=== PATIENT | male | born 1955 | race Two or more races ===

== ENCOUNTER 2020-05-22 07:42 | Outpatient (REF) | payer BC, SELFPAY ==
[2020-05-22 08:57] LABS: MANUAL DIFF FLAG NO
[2020-05-22 09:01] LABS: Basophils Absolute Auto 0.1 X10*3/uL (0.0-0.2); Eosinophils Absolute Auto 0.2 X10*3/uL (0.0-0.4); Eosinophils Percent Auto 2.8 % (0-4); Hematocrit 43.1 % (42-52); Imm Gran Abs Auto 0.02 X10*3/uL (0.00-0.03); Imm Gran Pct Auto 0.3 % (0.0-0.4); Lymphocytes Absolute Auto 2.2 X10*3/uL (1.2-4.9); Lymphocytes Percent Auto 27.3 % (20-40); Mean Corpuscular HGB Conc 32.5 g/dl (31.0-36.0); Mean Corpuscular Hemoglobin 27.7 pg (27.0-33.0); Mean Corpuscular Volume 85.2 fL (80-98); Mean Platelet Volume 11.1 fL (9.4-12.4); Monocytes Absolute Auto 0.8 X10*3/uL (0.1-1.2); Monocytes Percent Auto 9.6 % (2-11); Neutrophils Absolute Auto 4.7 X10*3/uL (2.0-8.3); Platelet Count 219 X10*3/uL (160-400); Red Blood Count 5.06 X10*6/uL (4.60-5.80); Red Cell Distribution Width 13.2 % (11.0-16.0)
[2020-05-22 09:20] LABS: Estimated Average Glucose 140 mg/dL; Hemoglobin A1c % 6.5 %
[2020-05-22 09:24] LABS: Alanine Aminotransferase 24 U/L (0-40); Albumin Level 4.5 g/dL (3.5-5.0); Alkaline Phosphatase 48 U/L (39-117); Anion Gap 12 (12-20); Aspartate Amino Transferase 20 U/L (5-37); Bilirubin Total 0.7 mg/dL (0.0-1.0); Blood Urea Nitrogen 15 mg/dL (9-16); Carbon Dioxide 28 mmol/L (22-29); Chloride 102 mmol/L (96-108); Cholesterol 142 mg/dL; Estimated Glomerular Filt Rate > 60; Glucose Random 89 mg/dL (60-115); HDL Cholesterol 49 mg/dL; LDL Cholesterol Calculated 82 mg/dl; Potassium 4.2 mmol/l (3.3-5.1); Sodium 138 mmol/L (135-145); Total Protein 7.1 g/dL (6.5-8.0); Triglycerides 56 mg/dL
[2020-05-22 09:45] LABS: Creatinine Urine 166.84 mg/dL; Microalbum/Creatinine Ratio Ur 11.3 ug/mg cr
[2020-05-22 09:46] LABS: Free T4 (Free Thyroxine) 0.82 ng/dL (0.71-1.85); Thyroid Stimulating Hormone 0.96 uIU/mL (0.32-4.0)
[2020-05-22 09:51] LABS: Prostate Specific Antigen Scr 0.34 ng/mL (<0.05-4.0)
[2020-05-22 10:10] LABS: Folate > 20.0 ng/mL (> or = 4.0); Vitamin B12 701 pg/mL (200-900)
== END 2020-05-22 07:43 | disposition home or self-care (01) ==
LOC: HO.LAB 07:42
PROVIDERS: Visit Provider Internal Medicine
DX: E78.00 Pure hypercholesterolemia, unspecified (principal); E11.65 Type 2 diabetes mellitus with hyperglycemia; N40.0 Benign prostatic hyperplasia without lower urinary tract symptoms; Z12.5 Encounter for screening for malignant neoplasm of prostate
CPT/HCPCS: 36415; 80053; 80061; 82043; 82607; 82746; 83036; 84153; 84439; 84443; 85025

== ENCOUNTER → 2020-10-16 14:27 | Outpatient (REF) | payer BC, SELFPAY ==
--- NOTE | 2020-10-16 15:00 | CA_ITS ---
Transthoracic Echocardiogram Patient (Last, First, Middle): Ti Wagner, Gender: Male Date of : 1955 Age: 64 Procedure Date: 10/16/2020 Procedure Type: Transthoracic Echocardiogram Location: OP Height: 172.72 cm Weight: 99.34 kg BSA: 2.12 m2 Heart Rate: bpm BP: 122 / 74 mmHg Shaft Headman: ANTHONY Referring MD: Jose Juan Perales MD Symptoms: I11.9 HYPERTENSIVE HEART DIS W/O HF, I43 CMP I51.7 LVH Study Quality: Fair ECG Rhythm: Bradycardia Conclusions: - The left ventricular systolic function is normal. The visually estimated ejection fraction is between 60-65%. - No obvious valvular pathology seen on this study. Findings Left Ventricle Normal left ventricular cavity size. There is mildly increased left ventricular wall thickness. The left ventricular systolic function is normal. The visually estimated ejection fraction is between 60-65%. There is no evidence of regional wall motion abnormalities. Diastolic function is normal for age. LV GLS -18.6%. Right Ventricle Normal right ventricular cavity size and systolic function. Atria Both atria are normal in size. Aortic Valve There is a normal trileaflet aortic valve. There is no aortic valve stenosis. There is no aortic valve regurgitation. Mitral Valve There is mild anterior mitral leaflet thickening. There is trace mitral valve regurgitation. There is no mitral valve stenosis. Pulmonic Valve The pulmonic valve was not well visualized. Tricuspid Valve Normal tricuspid valve structure. There is mild tricuspid valve regurgitation. The pulmonary artery systolic pressure is normal. Great Vessels The aortic annulus, sinuses of valsalva, and asc aorta are normal in size. Venous The inferior vena cava is normal in size and collapses less than 50% with inspiration. Pericardium/Pleural There is a trivial pericardial effusion. Prior Study Comparison Changes noted compared to prior study dated: 07/17/2017. Improved diastolic function. LVH seems less prominent. Recommendations, Care & Conclusions No obvious valvular pathology seen on this study. Measurements M-Mode Liner Measurements Normals - Women/Men AOV Cusps: 2.30 1.5-2.6 cm/m2 2D Linear Measurements IVSd: 1.28 0.6-0.9/0.6-1.0 cm LVIDd: 4.94 3.9-5.3/4.2-5.9 cm LVIDd Index: 2.33 2.4-3.2/2.2-3.1 cm/m2 LVIDs: 3.26 2.0-3.6 cm LVPWd: 1.05 0.7-1.1 cm Ao Root: 2.80 2.1-3.5 cm LA Diam: 3.10 2.7-3.8/3.0-4.0 cm LAIDs Index: 1.46 1.5-2.3 cm/m2 LV Mass: 274.23 67-162/88-224 g LV Mass Index: 129.36 43-95/49-115 g/m2 LVOT Diam: 2.20 3.0+(-)1.3 cm 2D Systolic Function EF 4C: 63.00 >55% EF 2C: 60.30 >55% EF BiP: 60.30 >55% Mitral Valve MV Pk E: 0.97 MV PK A: 0.75 MV Decel Time: 278.00 E/A: 1.30 E'Lateral: 12.10 E'Medial: 7.62 E/E' Med: 12.70 E/E' Lat: 8.00 PHT: 81.00 MVA PHT: 2.72 Decel Magoffin: 3.48 Aortic Valve AoV Pk Surinder: 1.56 AoV Mn Surinder: 1.13 AoV VTI: 0.36 AoV Pk Grad: 10.00 Aov Mn Grad: 6.00 GUSTABO Cont.VTI: 2.41 LVOT LVOT Pk Surinder: 1.04 LVOT Mn Surinder: 0.72 LVOT VTI: 0.23 LVOT Pk Grad: 4.00 LVOT Mn Grad: 2.00 LVOT Diam: 2.20 LVOT Area: 3.80 Diastolic Function MV Pk E: 0.97 MV Pk A: 0.75 E/A: 1.30 E'Medial: 7.62 E/E' Med: 12.70 E' Laterial: 12.10 E/E' Lat: 8.00 Tricuspid Valve TR Pk Surinder: 2.22 TR Pk Grad: 20.00 RA Press: 3.00 RVSP: 23.00 Great Vessels Aorta Ao Root-2D: 2.80 2.0-3.7 cm Ao Asc: 2.90 2.1-3.4 cm Ao Arch: 2.80 Pulmonary Valve PV Pk Surinder: 0.99 Peak PV Grad: 4.00 Updated in Other Vendor System with Status of Final Jose Juan Perales MD electronically signed on 10/18/2020 12:37:55 PM with status of Final
== END ==
LOC: HO.CARD 14:27
PROVIDERS: PCP Internal Medicine; Visit Provider Internal Medicine
DX: I11.9 Hypertensive heart disease without heart failure (principal); I43 Cardiomyopathy in diseases classified elsewhere
CPT/HCPCS: 93306

== ENCOUNTER → 2020-10-29 08:03 | Outpatient (BNVA) | payer BC, SELFPAY | PROVIDERS: PCP Internal Medicine; Referring Provider Internal Medicine; Visit Provider Internal Medicine | DX: I51.7 Cardiomegaly (principal); I10 Essential (primary) hypertension; I44.0 Atrioventricular block, first degree | CPT/HCPCS: 93005 ==

== ENCOUNTER 2021-04-26 17:55 | Emergency (ER) | payer BC, SELFPAY ==
--- NOTE | ~2021-04-26 | XR_ITS ---
EXAMINATION: XR CHEST CLINICAL INFORMATION: Chest pain COMPARISON: None TECHNIQUE: Frontal view of the chest was obtained. 6:47 PM FINDINGS: No significant abnormality is noted involving the heart, lungs, mediastinum, bony thorax or soft tissues. XR/XR chest 1V IMPRESSION: Unremarkable examination.
[2021-04-26 18:28] VITALS: BP 120/68; PULSE 80; RESP 18; TEMP 37; O2SAT 99; BMI 33.4
--- NOTE | 2021-04-26 18:32 | ECG_ITS ---
Test Reason : chest pain Blood Pressure : / mmHG Vent. Rate : 064 BPM Atrial Rate : 064 BPM P-R Int : 212 ms QRS Dur : 084 ms QT Int : 392 ms P-R-T Axes : 065 052 056 degrees QTc Int : 404 ms Sinus rhythm with 1st degree A-V block Possible Left atrial enlargement Borderline ECG When compared with ECG of 29-MAY-2003 22:44, No significant change was found Referred By: Generic ED Physician Electronically Signed By:Sarmad Currie
[2021-04-26 19:18] LABS: MANUAL DIFF FLAG NO
[2021-04-26 19:20] LABS: Basophils Absolute Auto 0.1 X10*3/uL (0.0-0.2); Basophils Percent Auto 0.6 % (0-2); Eosinophils Absolute Auto 0.2 X10*3/uL (0.0-0.4); Eosinophils Percent Auto 1.8 % (0-4); Hematocrit 44.1 % (42.0-52.0); Hemoglobin 14.4 g/dl (14.0-18.0); Imm Gran Abs Auto 0.01 X10*3/uL (0.00-0.03); Imm Gran Pct Auto 0.1 % (0.0-0.4); Lymphocytes Absolute Auto 1.7 X10*3/uL (1.2-4.9); Lymphocytes Percent Auto 19.1 % (20-40); Mean Corpuscular HGB Conc 32.7 g/dl (31.0-36.0); Mean Corpuscular Hemoglobin 27.4 pg (27.0-33.0); Mean Platelet Volume 10.3 fL (9.4-12.4); Monocytes Absolute Auto 0.9 X10*3/uL (0.1-1.2); Monocytes Percent Auto 9.6 % (2-11); Neutrophils Absolute Auto 6.1 x10*3/uL (2.0-8.3); Neutrophils Percent Auto 68.8 % (45-73); Platelet Count 221 X10*3/uL (160-400); Red Blood Count 5.25 X10*6/uL (4.60-5.80); Red Cell Distribution Width 13.5 % (11.0-16.0); White Blood Count 8.8 X10*3/uL (4.8-10.8)
[2021-04-26 19:36] LABS: COVID-19 Test Negative (Negative)
[2021-04-26 19:36] LABS: Anion Gap 10 (12-20); Blood Urea Nitrogen 15 mg/dL (9-16); Calcium 9.8 mg/dL (8.4-10.2); Carbon Dioxide 32 mmol/L (22-29); Chloride 102 mmol/L (96-108); Creatinine Clr Calc Pharmacy 80.1; Estimated Glomerular Filt Rate > 60; Glucose Random 187 mg/dL (60-115); Sodium 140 mmol/L (135-145)
[2021-04-26 19:42] LABS: Troponin-I High Sensitivity < 3.5 ng/L (<3.5-35.0)
--- NOTE | 2021-04-27 01:06 | ED_ITS ---
HPI - Chest Pain General Chief Complaint: Chest Pain Stated Complaint: chest pain into shoulders Time Seen by Provider: 04/26/21 23:21 Source: patient Mode of arrival: ambulatory History of Present Illness HPI narrative: 65-year-old male with history of diabetes, hypertension states that when he got up after sleeping this afternoon he began experiencing pain across the trapezius area of his back at the base the neck with radiation into h is neck and wrapping around into the anterior chest wall that he describes as sharp in nature and had been associated with nausea, diaphoresis as well as headache. Patient became very scared but denies any visual or auditory changes. Patient states that the pain has improved during his wait in the waiting area although there is some residual pain along the borders of his sternum. Related Data Home Medications Medication Instructions Recorded Confirmed ascorbate calcium (vitamin C) 500 500 mg PO DAILY 05/28/20 10/29/20 mg tablet aspirin 81 mg tablet,delayed 81 mg PO DAILY 05/28/20 10/29/20 release (Adult Aspirin Regimen) ferrous sulfate 325 mg (65 mg 325 mg PO DAILY 05/28/20 10/29/20 iron) tablet (Feosol) multivitamin 1 tab PO DAILY 05/28/20 10/29/20 nabumetone 750 mg tablet 750 mg PO BID 05/28/20 10/29/20 Previous Rx's Medication Instructions Recorded dicyclomine 10 mg capsule 10 mg PO BID #180 cap 04/17/20 tamsulosin 0.4 mg capsule 0.4 mg PO DAILY #90 cap 05/25/20 blood sugar diagnostic (FreeStyle #100 ea 05/28/20 Test) lancets 28 gauge (FreeStyle #100 ea 05/28/20 Lancets) clotrimazole 1 % topical cream 1 appl TOPICAL BID 28 Days #45 g 08/31/20 zolpidem 10 mg tablet (Ambien) 10 mg PO BEDTIME PRN #30 tab 08/31/20 lisinopril 5 mg tablet 5 mg PO DAILY #90 tab 02/03/21 atorvastatin 40 mg tablet 40 mg PO DAILY 90 Days #90 tab 03/19/21 Allergies Allergy/AdvReac Type Severity Reaction Status Date / Time No Known Allergies Allergy Verified 04/26/21 18:28 Review of Systems Review of Systems: Pertinent positives and negatives as stated in HPI 10 point review of systems is otherwise negative. PMFSH Past Medical History Source: nursing notes reviewed Medical History BPH (benign prostatic hyperplasia) COVID-19 virus infection Degenerative disc disease, lumbar Genital herpes Hypercholesterolemia Hypertension Hypertrophic cardiomyopathy Insomnia Mitral regurgitation Obesity (BMI 30-39.9) Type 2 diabetes mellitus with hyperglycemia Vitamin D deficiency Surgical History History of testicular surgery Family History Family History Father Acute CVA (cerebrovascular accident) Stroke Mother Hypertension Alzheimers disease Sister Stomach cancer Family/Other Prostate cancer Leukemia Social History Social History Housing: House Alcohol intake: never Patient Tobacco Use Status: Former Tobacco user Tobacco use type: Cigarette e-Cigarette/Vaping Use: Never Used Second Hand Smoke Exposure: No Advance Directives: No Advance Directives Information Provided: Yes service: No Current occupational status: employed Physical Exam Vital Signs: Vital Signs: Last Vital Signs Temp 98.6 F 04/26/21 18:28 Pulse 70 04/27/21 01:08 Resp 18 04/27/21 01:08 BP 123/61 04/27/21 01:08 Pulse Ox 97 04/27/21 01:08 BMI result Body Mass Index 33.4 VITAL SIGNS: Reviewed. GENERAL: Well developed, well nourished, in no acute distress. HEAD: Normocephalic/atraumatic EYES: PERRLA, EOMI intact without pain, no nystagmus OROPHARYNX: no oral lesions noted, posterior pharynx clear NECK: Supple, no adenopathy, no midline cervical spine tenderness LUNGS: Normal breath sounds. SpO2<99> CARDIOVASCULAR: Regular rate and rhythm without noted murmurs, no JVD or lower extremity edema. ABDOMEN: Soft, non-tender, non-distended with bowel sounds. No rigidity. No guarding. No palpable masses or hernias noted SKIN: Inspection of the skin reveals no rashes NEUROLOGIC: Alert and oriented x 4. Strength and sensation to light touch were grossly intact x 4. Course Course Course Narrative: 65-year-old male with history and clinical presentation suggestive of musculoskeletal with spasm and radiation of pain into anterior chest. Low clinical suspicion for vertebral/carotid dissections and history not consistent for VTE or cardiac ischemia. On review of all investigations there are no acute findings to better explain patient's presentation and this was discussed with him at bedside. As patient is diabetic will pursue serial troponins although there are no acute EKG changes. HEART Score: 3, low risk Review of serial troponins in conjunction with EKG negative for evidence to suggest ischemic changes and history is not consistent with angina symptoms. All results discussed with the patient at bedside and he was encouraged to follow-up with his primary care provider as well as ambulance attendant within the next 1-2 days. MDM - Chest Pain Lab Data Result diagrams: 04/26/21 19:13 04/26/21 19:13 Labs: Lab Results 04/26/21 04/26/21 04/26/21 Range/Units 19:08 19:13 19:13 WBC 8.8 (4.8-10.8) X10*3/uL RBC 5.25 (4.60-5.80) X10*6/uL Hgb 14.4 (14.0-18.0) g/dl Hct 44.1 (42.0-52.0) % MCV 84.0 (80.0-98.0) fL MCH 27.4 (27.0-33.0) pg MCHC 32.7 (31.0-36.0) g/dl RDW 13.5 (11.0-16.0) % Plt Count 221 (160-400) X10*3/uL MPV 10.3 (9.4-12.4) fL Immature Gran % (Auto) 0.1 (0.0-0.4) % Neut % (Auto) 68.8 (45-73) % Lymph % (Auto) 19.1 L (20-40) % Kleberg % (Auto) 9.6 (2-11) % Eos % (Auto) 1.8 (0-4) % Baso % (Auto) 0.6 (0-2) % Lymph # (Auto) 1.7 (1.2-4.9) X10*3/uL Kleberg # (Auto) 0.9 (0.1-1.2) X10*3/uL Eos # (Auto) 0.2 (0.0-0.4) X10*3/uL Baso # (Auto) 0.1 (0.0-0.2) X10*3/uL Abs Immat Gran (auto) 0.01 (0.00-0.03) X10*3/uL Absolute Neuts (auto) 6.1 (2.0-8.3) x10*3/uL Absolute Nucleated RBC 0.000 (0.0-0.012) X10*3/uL Nucleated RBC % (auto) 0.0 (0.0-0.2) /100WBC Sodium 140 (135-145) mmol/L Potassium 4.0 (3.3-5.1) mmol/L Chloride 102 (96-108) mmol/L Carbon Dioxide 32 H (22-29) mmol/L Anion Gap 10 L (12-20) BUN 15 (9-16) mg/dL Creatinine 1.08 (0.5-1.4) mg/dL Estim Creat Clear Calc 80.1 Estimated GFR > 60 Random Glucose 187 H D (60-115) mg/dL Calcium 9.8 D (8.4-10.2) mg/dL Troponin I High Sens (<3.5-35.0) ng/L COVID-19 (STEPHANIE) Negative (Negative) COVID-19 Clin Com See Note 04/26/21 04/27/21 Range/Units 19:13 01:06 WBC (4.8-10.8) X10*3/uL RBC (4.60-5.80) X10*6/uL Hgb (14.0-18.0) g/dl Hct (42.0-52.0) % MCV (80.0-98.0) fL MCH (27.0-33.0) pg MCHC (31.0-36.0) g/dl RDW (11.0-16.0) % Plt Count (160-400) X10*3/uL MPV (9.4-12.4) fL Immature Gran % (Auto) (0.0-0.4) % Neut % (Auto) (45-73) % Lymph % (Auto) (20-40) % Kleberg % (Auto) (2-11) % Eos % (Auto) (0-4) % Baso % (Auto) (0-2) % Lymph # (Auto) (1.2-4.9) X10*3/uL Kleberg # (Auto) (0.1-1.2) X10*3/uL Eos # (Auto) (0.0-0.4) X10*3/uL Baso # (Auto) (0.0-0.2) X10*3/uL Abs Immat Gran (auto) (0.00-0.03) X10*3/uL Absolute Neuts (auto) (2.0-8.3) x10*3/uL Absolute Nucleated RBC (0.0-0.012) X10*3/uL Nucleated RBC % (auto) (0.0-0.2) /100WBC Sodium (135-145) mmol/L Potassium (3.3-5.1) mmol/L Chloride (96-108) mmol/L Carbon Dioxide (22-29) mmol/L Anion Gap (12-20) BUN (9-16) mg/dL Creatinine (0.5-1.4) mg/dL Estim Creat Clear Calc Estimated GFR Random Glucose (60-115) mg/dL Calcium (8.4-10.2) mg/dL Troponin I High Sens < 3.5 < 3.5 (<3.5-35.0) ng/L COVID-19 (STEPHANIE) (Negative) COVID-19 Clin Com ECG Data ECG #1: Attestation: I personally reviewed and interpreted this ECG as follows: Interpretation: Sinus rhythm with first-degree AV block, HR-64, no STEMI, WA at baseline, QRS/QTC are within normal limits. Discharge Plan Discharge Clinical Impression: Musculoskeletal pain, Muscle spasm Patient Disposition: Home, Self-Care Instructions: Musculoskeletal Pain (ED), Muscle Spasm (ED) Additional Instructions: 1. Resume all home medications as prescribed. 2. Tylenol 1000 mg, orally, every 6 hours as needed for pain control. Do not exceed 4000 mg within 24 hours. 3. Recommend trda-eis-snuozec lidocaine patch, apply this to area of maximal tenderness as directed on the outside packaging. 4. Follow-up with your primary care provider in the next 1-2 days for further discussion regarding this pain and further outpatient management. Return to the ER for worsening symptoms. Prescriptions: No Action dicyclomine 10 mg capsule 10 mg PO BID Qty: 180 RF: 1 tamsulosin 0.4 mg capsule 0.4 mg PO DAILY Qty: 90 RF: 2 lisinopril 5 mg tablet 5 mg PO DAILY Qty: 90 RF: 2 atorvastatin 40 mg tablet 40 mg PO DAILY 90 Days Qty: 90 RF: 3 zolpidem [Ambien] 10 mg tablet 10 mg PO BEDTIME PRN (Reason: sleep) Qty: 30 RF: 0 clotrimazole 1 % cream 1 appl topical BID 28 Days Qty: 45 RF: 0 nabumetone 750 mg tablet 750 mg PO BID RF: 0 multivitamin Tablet 1 tab PO DAILY RF: 0 ascorbate calcium (vitamin C) 500 mg tablet 500 mg PO DAILY RF: 0 ferrous sulfate [Feosol] 325 mg (65 mg iron) tablet 325 mg PO DAILY RF: 0 aspirin [Adult Aspirin Regimen] 81 mg tablet,delayed release (DR/EC) 81 mg PO DAILY RF: 0 (DME) lancets [FreeStyle Lancets] 28 gauge misc See Rx Instructions .ROUTE .MEDSUPPLY Qty: 100 RF: 3 (DME) FreeStyle Test Strip See Rx Instructions .ROUTE .MEDSUPPLY Qty: 100 RF: 3 Referrals: Po,Chari Mcbride MD [Primary Care Provider] - 2 days
[2021-04-27 01:08] VITALS: BP 123/61; PULSE 70; RESP 18; O2SAT 97
[2021-04-27 01:34] LABS: Troponin-I High Sensitivity < 3.5 ng/L (<3.5-35.0)
[2021-04-27] MEDS: Ketorolac Tromethamine 30 MG/ML VIAL 15 MG IM (01:49)
[2021-04-27] MEDS: Lidocaine 4 % Patch ADH..PATCH 1 PATCH TRANSDERMA (01:49)
[2021-04-27] MEDS: Acetaminophen 325 MG TABLET 975 MG PO (01:50)
== END 2021-04-27 02:01 | disposition home or self-care (01) ==
PROVIDERS: Emergency Provider Student in an Organized Health Care Education/Training Program; PCP Internal Medicine
DX: R07.89 Other chest pain (principal); M62.838 Other muscle spasm; E11.9 Type 2 diabetes mellitus without complications; I10 Essential (primary) hypertension; Z20.822 Contact with and (suspected) exposure to COVID-19
CPT/HCPCS: 36415; 71045; 80048; 84484; 85025; 87635; 93005; 96372; 99284; J1885

== ENCOUNTER 2021-06-04 14:27 | Outpatient (REF) | payer BC, SELFPAY ==
[2021-06-04 14:51] LABS: MANUAL DIFF FLAG NO
[2021-06-04 15:14] LABS: Basophils Absolute Auto 0.1 X10*3/uL (0.0-0.2); Basophils Percent Auto 0.6 % (0-2); Eosinophils Absolute Auto 0.3 X10*3/uL (0.0-0.4); Eosinophils Percent Auto 3.2 % (0-4); Hematocrit 44.3 % (42.0-52.0); Hemoglobin 14.1 g/dl (14.0-18.0); Imm Gran Abs Auto 0.02 X10*3/uL (0.00-0.03); Imm Gran Pct Auto 0.3 % (0.0-0.4); Lymphocytes Percent Auto 25.3 % (20-40); Mean Corpuscular HGB Conc 31.8 g/dl (31.0-36.0); Mean Corpuscular Hemoglobin 26.9 pg (27.0-33.0); Mean Corpuscular Volume 84.4 fL (80.0-98.0); Mean Platelet Volume 10.1 fL (9.4-12.4); Monocytes Absolute Auto 0.8 X10*3/uL (0.1-1.2); Monocytes Percent Auto 10.5 % (2-11); Neutrophils Absolute Auto 4.7 x10*3/uL (2.0-8.3); Neutrophils Percent Auto 60.1 % (45-73); Platelet Count 225 X10*3/uL (160-400); Red Blood Count 5.25 X10*6/uL (4.60-5.80); Red Cell Distribution Width 13.6 % (11.0-16.0); White Blood Count 7.9 X10*3/uL (4.8-10.8)
[2021-06-04 15:20] LABS: Estimated Average Glucose 148 mg/dL; Hemoglobin A1c % 6.8 %
[2021-06-04 15:34] LABS: Creatinine Urine 164.46 mg/dL; Microalbum/Creatinine Ratio Ur 7.2 ug/mg cr
[2021-06-04 15:35] LABS: Alanine Aminotransferase 18 U/L (0-40); Albumin Level 4.2 g/dL (3.5-5.0); Alkaline Phosphatase 51 U/L (39-117); Anion Gap 8 (12-20); Aspartate Amino Transferase 16 U/L (5-37); Bilirubin Total 0.9 mg/dL (0.0-1.0); Blood Urea Nitrogen 14 mg/dL (9-16); Calcium 9.5 mg/dL (8.4-10.2); Carbon Dioxide 31 mmol/L (22-29); Chloride 103 mmol/L (96-108); Cholesterol 139 mg/dL; Estimated Glomerular Filt Rate > 60; Glucose Random 109 mg/dL (60-115); HDL Cholesterol 39 mg/dL; LDL Cholesterol Calculated 88 mg/dl; Potassium 4.4 mmol/L (3.3-5.1); Sodium 138 mmol/L (135-145); Total Protein 6.8 g/dL (6.5-8.0); Triglycerides 60 mg/dL
[2021-06-04 15:54] LABS: Free T4 (Free Thyroxine) 0.74 ng/dL (0.71-1.85); Prostate Specific Antigen Scr 0.28 ng/mL (<0.05-4.0); Thyroid Stimulating Hormone 1.54 uIU/mL (0.32-4.0)
[2021-06-04 16:09] LABS: Folate > 20.0 ng/mL (> or = 4.0); Vitamin B12 720 pg/mL (200-900)
== END 2021-06-04 14:28 | disposition home or self-care (01) ==
LOC: HO.LAB 14:27
PROVIDERS: PCP Internal Medicine; Visit Provider Internal Medicine
DX: E11.65 Type 2 diabetes mellitus with hyperglycemia (principal); E78.00 Pure hypercholesterolemia, unspecified
CPT/HCPCS: 36415; 80053; 80061; 82043; 82607; 82746; 83036; 84153; 84439; 84443; 85025

== ENCOUNTER 2021-06-10 12:27 | Outpatient (REF) | payer BC, SELFPAY ==
--- NOTE | ~2021-06-10 | XR_ITS ---
EXAMINATION: XR FOOT, LEFT CLINICAL INFORMATION: Foot ganglion COMPARISON: None TECHNIQUE: AP, lateral, and oblique views of the left foot. FINDINGS: Bones have normal alignment throughout the foot. Small linear ossification at the lateral base of the fifth metatarsal likely represents old avulsion fracture. No acute osseous injury. No erosions or periostitis. Mild articular cartilage space narrowing and small osteophytes of the great toe MTP joint. Otherwise, MTP joints are unremarkable. Mild osteoarthritis of multiple interphalangeal joints. No soft tissue mass or radiopaque foreign body. XR/XR foot LT 2V IMPRESSION: * No radiographic evidence of soft tissue mass in the left foot. * Mild osteoarthritis of the first metatarsophalangeal joint and of multiple interphalangeal joints.
== END 2021-06-10 12:28 | disposition home or self-care (01) ==
LOC: HO.XRAY 12:27
PROVIDERS: PCP Internal Medicine; Visit Provider Internal Medicine
DX: M67.479 Ganglion, unspecified ankle and foot (principal)
CPT/HCPCS: 73620

== ENCOUNTER 2021-07-29 09:27 | Outpatient (REF) | payer BC, SELFPAY ==
--- NOTE | ~2021-07-29 | US_ITS ---
EXAMINATION: US EXTRACRANIAL CAROTID DUPLEX, BILATERAL CLINICAL INFORMATION: Carotid bruit. COMPARISON: None TECHNIQUE: Real-time ultrasound and Doppler techniques (integrating B-mode 2-D vascular images, Doppler spectral analysis and color-flow Doppler imaging) were utilized to interrogate the extracranial carotid arteries, the vertebral arteries and proximal subclavian arteries bilaterally. The degree of stenosis is determined by criteria similar to NASCET. FINDINGS: Right Side: 1. There is mild atherosclerotic plaque seen in the bifurcation/proximal ICA region. 2. The common carotid artery PSV proximally is 134 cm/s and distally 123 cm/s. 3. The proximal internal carotid artery velocities are 89.7 cm/s systolic and 32.8 cm/s diastolic. 4. The proximal external carotid artery PSV is 164 cm/s. 5. The vertebral artery shows antegrade flow. 6. The subclavian artery waveforms are normal. Left Side: 1. There is mild atherosclerotic plaque seen in the bifurcation/proximal ICA region. 2. The common carotid artery PSV proximally is 128 cm/s and distally 125 cm/s. 3. The proximal internal carotid artery velocities are 62.1 cm/s systolic and 24 cm/s diastolic. 4. The proximal external carotid artery PSV is 190 cm/s. 5. The vertebral artery shows antegrade flow. 6. The subclavian artery waveforms are normal. US/US carotid duplex BI IMPRESSION: 1. RIGHT: Minimal, non-hemodynamically significant stenosis of the proximal right internal carotid artery corresponding to a 0-49% stenosis by velocity criteria. 2. LEFT: Minimal, non-hemodynamically significant stenosis of the proximal left internal carotid artery corresponding to a 0-49% stenosis by velocity criteria.
== END 2021-07-29 09:28 | disposition home or self-care (01) ==
LOC: HO.US 09:27
PROVIDERS: Visit Provider Internal Medicine
DX: R09.89 Other specified symptoms and signs involving the circulatory and respiratory systems (principal)
CPT/HCPCS: 93880

== ENCOUNTER → 2021-11-04 08:26 | Outpatient (BNVA) | payer BC, SELFPAY | PROVIDERS: PCP Internal Medicine; Referring Provider Internal Medicine; Visit Provider Internal Medicine | DX: I51.7 Cardiomegaly (principal); I10 Essential (primary) hypertension; I44.0 Atrioventricular block, first degree; R00.1 Bradycardia, unspecified | CPT/HCPCS: 93005 ==

== ENCOUNTER 2022-06-24 06:36 | Outpatient (REF) | payer BC, SELFPAY ==
[2022-06-24 06:47] LABS: MANUAL DIFF FLAG NO
[2022-06-24 07:54] LABS: Basophils Absolute Auto 0.1 X10*3/uL (0.0-0.2); Basophils Percent Auto 0.8 % (0-2); Eosinophils Absolute Auto 0.2 X10*3/uL (0.0-0.4); Eosinophils Percent Auto 2.4 % (0-4); Hematocrit 47.7 % (42.0-52.0); Hemoglobin 15.3 g/dl (14.0-18.0); Imm Gran Abs Auto 0.01 X10*3/uL (0.00-0.03); Imm Gran Pct Auto 0.1 % (0.0-0.4); Lymphocytes Absolute Auto 1.9 X10*3/uL (1.2-4.9); Lymphocytes Percent Auto 25.9 % (20-40); Mean Corpuscular HGB Conc 32.1 g/dl (31.0-36.0); Mean Corpuscular Hemoglobin 27.1 pg (27.0-33.0); Mean Corpuscular Volume 84.4 fL (80.0-98.0); Mean Platelet Volume 10.6 fL (9.4-12.4); Monocytes Absolute Auto 0.7 X10*3/uL (0.1-1.2); Monocytes Percent Auto 10.1 % (2-11); Neutrophils Absolute Auto 4.4 x10*3/uL (2.0-8.3); Neutrophils Percent Auto 60.7 % (45-73); Platelet Count 265 X10*3/uL (160-400); Red Blood Count 5.65 X10*6/uL (4.60-5.80); Red Cell Distribution Width 13.5 % (11.0-16.0); White Blood Count 7.2 X10*3/uL (4.8-10.8)
[2022-06-24 08:15] LABS: Creatinine Urine 188.05 mg/dL; Microalbum/Creatinine Ratio Ur 7.9 ug/mg cr
[2022-06-24 08:15] LABS: Estimated Average Glucose 154 mg/dL
[2022-06-24 08:20] LABS: Alanine Aminotransferase 20 U/L (0-40); Albumin Level 4.2 g/dL (3.5-5.0); Alkaline Phosphatase 54 U/L (39-117); Anion Gap 12 (12-20); Aspartate Amino Transferase 14 U/L (5-37); Blood Urea Nitrogen 18 mg/dL (9-16); Calcium 9.1 mg/dL (8.4-10.2); Carbon Dioxide 27 mmol/L (22-29); Chloride 105 mmol/L (96-108); Cholesterol 153 mg/dL; Estimated Glomerular Filt Rate > 60; Glucose Random 107 mg/dL (60-115); HDL Cholesterol 39 mg/dL; LDL Cholesterol Calculated 102 mg/dl; Potassium 4.4 mmol/L (3.3-5.1); Sodium 140 mmol/L (135-145); Total Protein 6.8 g/dL (6.5-8.0); Triglycerides 63 mg/dL
[2022-06-24 08:50] LABS: Folate 13.3 ng/mL (> or = 4.0); Free T4 (Free Thyroxine) 0.77 ng/dL (0.71-1.85); Prostate Specific Antigen Scr 0.46 ng/mL (<0.05-4.0); Thyroid Stimulating Hormone 0.56 uIU/mL (0.32-4.0); Vitamin B12 553 pg/mL (200-900)
== END 2022-06-24 06:37 | disposition home or self-care (01) ==
LOC: HO.LAB 06:36
PROVIDERS: PCP Internal Medicine; Visit Provider Internal Medicine
DX: E11.65 Type 2 diabetes mellitus with hyperglycemia (principal); N40.1 Benign prostatic hyperplasia with lower urinary tract symptoms; R35.0 Frequency of micturition; E78.00 Pure hypercholesterolemia, unspecified; Z12.5 Encounter for screening for malignant neoplasm of prostate
CPT/HCPCS: 36415; 80053; 80061; 82043; 82607; 82746; 83036; 84153; 84439; 84443; 85025

== ENCOUNTER 2022-08-22 09:17 | Outpatient (REF) | payer BC, SELFPAY ==
--- NOTE | ~2022-08-22 | XR_ITS ---
EXAMINATION: XR FOOT, RIGHT CLINICAL INFORMATION: Gout. COMPARISON: None available. TECHNIQUE: AP, lateral, and oblique views of the right foot. FINDINGS: There is loss of proximal and distal interphalangeal joints with periarticular spurring in the 2nd and 3rd digits DIP joint. No bony erosive changes. No acute fracture or dislocation seen. Especially there is no abnormality involving distal 1st digit. The ankle mortise and subtalar joints are normal. Small retrocalcaneal enthesophyte is noted. The soft tissues are normal. XR/XR foot RT 2V IMPRESSION: Mild degenerative changes of the PIP and DIP joints with retrocalcaneal enthesophyte.
[2022-08-22 09:27] LABS: MANUAL DIFF FLAG NO
[2022-08-22 09:59] LABS: Basophils Percent Auto 0.5 % (0-2); Eosinophils Absolute Auto 0.2 X10*3/uL (0.0-0.4); Eosinophils Percent Auto 2.3 % (0-4); Hematocrit 44.1 % (42.0-52.0); Hemoglobin 14.3 g/dl (14.0-18.0); Imm Gran Abs Auto 0.03 X10*3/uL (0.00-0.03); Imm Gran Pct Auto 0.4 % (0.0-0.4); Lymphocytes Absolute Auto 1.9 X10*3/uL (1.2-4.9); Lymphocytes Percent Auto 22.4 % (20-40); Mean Corpuscular HGB Conc 32.4 g/dl (31.0-36.0); Mean Corpuscular Hemoglobin 27.1 pg (27.0-33.0); Mean Corpuscular Volume 83.5 fL (80.0-98.0); Mean Platelet Volume 10.7 fL (9.4-12.4); Monocytes Absolute Auto 0.9 X10*3/uL (0.1-1.2); Monocytes Percent Auto 10.4 % (2-11); Neutrophils Absolute Auto 5.3 x10*3/uL (2.0-8.3); Platelet Count 219 X10*3/uL (160-400); Red Blood Count 5.28 X10*6/uL (4.60-5.80); Red Cell Distribution Width 13.5 % (11.0-16.0); White Blood Count 8.3 X10*3/uL (4.8-10.8)
[2022-08-22 10:11] LABS: Estimated Average Glucose 137 mg/dL; Hemoglobin A1c % 6.4 %
[2022-08-22 10:56] LABS: Alanine Aminotransferase 14 U/L (0-40); Alkaline Phosphatase 57 U/L (39-117); Anion Gap 11 (12-20); Aspartate Amino Transferase 15 U/L (5-37); Bilirubin Total 0.7 mg/dL (0.0-1.0); Blood Urea Nitrogen 14 mg/dL (9-16); Calcium 8.9 mg/dL (8.4-10.2); Carbon Dioxide 25 mmol/L (22-29); Chloride 107 mmol/L (96-108); Cholesterol 137 mg/dL; Estimated Glomerular Filt Rate > 60; Glucose Random 194 mg/dL (60-115); HDL Cholesterol 39 mg/dL; LDL Cholesterol Calculated 74 mg/dl; Sodium 139 mmol/L (135-145); Total Protein 6.6 g/dL (6.5-8.0); Triglycerides 123 mg/dL; Uric Acid 4.1 mg/dL (3.4-7.0)
== END 2022-08-22 09:18 | disposition home or self-care (01) ==
LOC: HO.LAB 09:17
PROVIDERS: PCP Internal Medicine; Visit Provider Internal Medicine
DX: E11.65 Type 2 diabetes mellitus with hyperglycemia (principal); M10.9 Gout, unspecified; E78.00 Pure hypercholesterolemia, unspecified
CPT/HCPCS: 36415; 73620; 80053; 80061; 83036; 84550; 85025

== ENCOUNTER 2022-11-21 12:56 | Outpatient (AMB) | payer BC, SELFPAY ==
--- NOTE | 2022-11-21 14:15 | MHC.OFFWIV ---
Intake Vital Signs 11/21/22 14:18 BP 112/60 Blood Pressure Location Lt brachial Position Sitting Pulse 60 Pulse Source Pulse Oximeter Temp 98.9 F Temp Source Oral Pulse Oximetry (%) 97 Oxygen Delivery Method Room Air Intake Visit Reasons: EP, Cold (masked, lobby) Intake Note: Pt is here today c/o coughing up phelgm and chills Patient Tobacco Use Status: Former Tobacco user Allergies metformin Adverse Reaction (Intermediate, Unverified 11/21/22 14:16) Diarrhea Do you need a note to return to daycare/school/sports/work: No HPI HPI Comments History of Present Illness Details 67-year-old male presents with 2 weeks of upper respiratory symptoms, sore throat, fevers and chills. He does not report any ear pain, dizziness, or weakness. Does not report a cough states that he feels like he has to clear his throat because of the throat irritation. [facility] Medical History BPH (benign prostatic hyperplasia) COVID-19 virus infection Degenerative disc disease, lumbar Genital herpes Hypercholesterolemia Hypertrophic cardiomyopathy Insomnia Mitral regurgitation Obesity (BMI 30-39.9) Type 2 diabetes mellitus with hyperglycemia Vitamin D deficiency Surgical History History of testicular surgery Family History Father Acute CVA (cerebrovascular accident) Stroke Mother Hypertension Alzheimers disease Sister Stomach cancer Family/Other Prostate cancer Leukemia Social History Housing: House Alcohol intake: never Patient Tobacco Use Status: Former Tobacco user Tobacco use type: Cigarette Years Smoked: quit 1989 e-Cigarette/Vaping Use: Never Used Second Hand Smoke Exposure: No service: No Current occupational status: employed Cognitive needs: No Hearing needs: No Vision needs: Yes Review of Systems Const Details: Constitutional: Positive Fever, positive Chills ENT/Mouth: No Ear Pain, positive Hoarseness, positive sore throat Eyes: No Eye Pain, No Swelling, No Redness, No Foreign Body Cardiovascular: No Chest Pain, No SOB Respiratory: No Cough, No Dyspnea Gastrointestinal: No Nausea, No Vomiting, No Diarrhea, No abdominal Pain Genitourinary: No Dysuria, No Hematuria Musculoskeletal: No joint pain, No Myalgias, No Joint Swelling Skin: No Skin lacerations, No rash Neuro: No Weakness, No Dizziness, No Headache All systems reviewed & are unremarkable except as noted in HPI and below Physical Exam Vital Signs: Last Vital Signs Temp 98.9 F 11/21/22 14:18 Pulse 60 11/21/22 14:18 BP 112/60 11/21/22 14:18 Pulse Ox 97 11/21/22 14:18 Oxygen Delivery Method Room Air 11/21/22 14:18 Appearance: Alert. Oriented X3. No acute distress. Eyes: Pupils equal, round and reactive to light. ENT: Pharynx erythematous with bilateral tonsillar exudates and erythema, Centor scale 3. Anterior-posterior cervical at Luís by adenopathy that is bilaterally equal. No mastoid tenderness. No vertebral tenderness. No nuchal rigidity. Tympanic membranes bilaterally equal. Neck: Normal inspection. Neck supple. CVS: Normal heart rate and rhythm. Pulses normal. Respiratory: No respiratory distress. Breath sounds normal. . Skin: No rashes. Skin warm and dry. Normal skin color. Normal skin turgor. Extremities: No lower extremity edema. Gait well balanced well coordinated. Neuro: No motor deficit. No sensory deficit. Cranial nerves 2-12 intact. Assessment & Plan Assessment & Plan (1) Pharyngitis: Code(s): J02.9 - Acute pharyngitis, unspecified Plan 67-year-old male presents with 2 weeks of upper respiratory symptoms consistent with pharyngitis. He is a diabetic, and has been using zgru-zjo-zwvogls measures with poor effect. Physical exam indicates erythematous pharynx, bilateral tonsillar swelling with exudates, Centor scale 3 with anterior posterior lymphadenopathy. No mastoid tenderness. No tenderness tragus. No vertebral tenderness or step-offs. No meningeal signs. No indication of epiglottitis or peritonsillar abscess. No tracheal stridor. Patient is able to manage secretions, and has no change in voice. Patient tested for COVID influenza RSV, and strep. Considering that this patient is a diabetic, and has been trying to fight this URI for the past 2 weeks with ihvo-yux-ipaeann measures with no success, will treat as if positive for pharyngitis. The test is pending. Will treat with Augmentin 875 mg every 12 hours for the next 7 days. Supportive measure with Tylenol Motrin, sea salt water gargles, lozenges. Patient verbalized understanding of discharge instructions. Verbalized understandings of signs and symptoms indicating need for emergent intervention. Orders: Orders SARS-CoV2/FLU/RSV Today R09.89 - Other specified symptoms and signs involving the circulatory and respiratory systems Medications: New amoxicillin-pot clavulanate 875-125 mg 1 tab PO Q12H 7 days 14 tabs 0RF amoxicillin-pot clavulanate 875-125 mg 1 tab PO Q12H 7 days 14 tabs 0RF Patient Instructions: Fue evaluado caroline 2 semanas por dolor de garganta y s?ntomas de las v?as respiratorias superiores. Te estamos tratando de faringitis. [place] Augmentin 875 mg cada 12 horas caroline los pr?ximos 7 d?as. Tirar crook cepillo de dientes el d?a 5 y despu?s de terminar marie antibi?ticos. [place] es para prevenir la reinfecci?n. Use g?rgaras de agua salada, miel y pastillas de venta marvel para ayudar a reducir los s?ntomas. [place] Tylenol 650 mg cada 6 horas y Motrin 600 mg cada 6 horas seg?n sea necesario para controlar el dolor y la fiebre. Considere lele estos medicamentos con 3 horas de diferencia para controlar el dolor y la fiebre cada 3 horas. Anote a qu? hora lalo estos medicamentos para evitar marciano sobredosis accidental. Motrin es el mismo medicamento que Advil e ibuprofeno. Tylenol es el mismo medicamento que el paracetamol. Charisma por elegir esta atenci?n de urgencia para crook evaluaci?n. Por favor, rubén un seguimiento con el m?dico de atenci?n primaria seg?n sea necesario. Regrese al departamento de emergencias por cualquier s?ntoma nuevo, preocupante o que empeore. You were evaluated for 2 weeks of a sore throat and upper respiratory symptoms. We are treating you for pharyngitis. Take Augmentin 875 mg every 12 hours for the next 7 days. Throwing your toothbrush at day 5 and after the completion of your antibiotics. This is to prevent reinfection. Use sea saltwater gargles, honey, and keus-exq-pyqlqsg lozenges to help reduce symptoms. Alternate Tylenol 650 mg every 6 hours and Motrin 600 mg every 6 hours as needed for pain and fever management. Consider taking these medications 3 hours apart so you have pain and fever management every 3 hours. Write down what time you take these medications to prevent accidental overdose. Motrin is the same medication as Advil and ibuprofen. Tylenol is the same medication as acetaminophen. Thank you for choosing this urgent care for evaluation. Please follow-up with primary care physician as needed. Return to the emergency department for any new, concerning, or worsening symptoms. Coding Level of Care Code Est Pt Level 3 (59132) Diagnoses Pharyngitis J02.9
[2022-11-21 14:18] VITALS: BP 112/60; PULSE 60; TEMP 37.2; O2SAT 97
== END 2022-11-21 15:07 | disposition home or self-care (01) ==
PROVIDERS: PCP Internal Medicine; Visit Provider Nurse Practitioner Family
DX: J02.9 Acute pharyngitis, unspecified (principal)
CPT/HCPCS: 87880; 99213

== ENCOUNTER 2023-01-18 14:17 | Outpatient (AMB) | payer BC, SELFPAY ==
[2023-01-18 14:22] VITALS: BP 110/64; PULSE 57; BMI 32.6
--- NOTE | 2023-01-18 14:22 | A.OFFVIS_ITS ---
Intake Vital Signs 01/18/23 14:22 Height 5 ft 8 in Weight 214 lb 11.684 oz BMI 32.6 BP 110/64 Blood Pressure Location Lt brachial Position Sitting Pulse 57 Intake Visit Reasons: 1 year follow up Intake Note: 1 year follow up w/ EKG [place] Whipper Required: No Accompanied by: Self / Same As Patient Allergies metformin Adverse Reaction (Intermediate, Verified 01/18/23 14:24) Diarrhea Medication List - Last Reconciled 01/18/23 by Jose Juan Perales MD ascorbate calcium (vitamin C) 500 mg PO DAILY atorvastatin 40 mg PO DAILY 90 days blood sugar diagnostic (FreeStyle Test strips) As directed check BS QD clotrimazole 1% 1 appl topical BID 4 weeks dicyclomine 10 mg PO BID lancets (FreeStyle Lancets) As directed check BS QD lisinopril 10 mg PO DAILY 90 days metaxalone 800 mg PO TID PRN multivitamin 1 tab PO DAILY nabumetone 750 mg PO BID sitagliptin phosphate (Januvia) 100 mg PO DAILY 90 days tamsulosin 0.4 mg PO DAILY zolpidem (Ambien) 10 mg PO BEDTIME PRN HPI HPI Comments History of Present Illness Details Ti returns for follow-up. In the past, labeled to have hypertrophic cardiomyopathy but this could rather just be from left ventricular hypertrophy from hypertension. Overall, he is doing well. On 1 occasion, while he was at work states that he felt short of breath and that his heart was racing and that he did not feel good. However, no clear anginal-type chest pains. After that, he is feeling better. [facility] Medical History BPH (benign prostatic hyperplasia) COVID-19 virus infection Degenerative disc disease, lumbar Genital herpes Hypercholesterolemia Hypertrophic cardiomyopathy Insomnia Mitral regurgitation Obesity (BMI 30-39.9) Type 2 diabetes mellitus with hyperglycemia Vitamin D deficiency Surgical History History of testicular surgery Family History Father Acute CVA (cerebrovascular accident) Stroke Mother Hypertension Alzheimers disease Sister Stomach cancer Family/Other Prostate cancer Leukemia Social History Housing: House Alcohol intake: never Patient Tobacco Use Status: Former Tobacco user Tobacco use type: Cigarette Years Smoked: quit 1989 e-Cigarette/Vaping Use: Never Used Second Hand Smoke Exposure: No service: No Current occupational status: employed Cognitive needs: No Hearing needs: No Vision needs: Yes Review of Systems Const Denies weakness ENT Denies dizziness Card Denies chest pain, Denies chest pain with activity, Denies syncope, Denies rapid heart rate, Denies pedal edema, Denies edema, Denies leg edema, Denies lightheadedness, Denies palpitations, Denies dyspnea, Denies dyspnea on exertion and Denies orthopnea Resp Denies cough, Denies dyspnea and Denies dyspnea on exertion GI Denies hematochezia and Denies change in stool character Musc Denies abnormal gait, Denies muscle cramps, Denies muscle weakness, Denies numbness, Denies radiating pain into limb and Denies tingling Neuro Denies abnormal gait, Denies dizziness, Denies syncope, Denies numbness, Denies tingling and Denies weakness Endo Denies palpitations Physical Exam Vital Signs: Last Vital Signs Pulse 57 01/18/23 14:22 BP 110/64 01/18/23 14:22 BMI result Body Mass Index 32.6 Const General: comfortable and no acute distress Orientation/consciousness: patient oriented x3 HEENT Other: Unremarkable Head: Yes normal to inspection Neck Neck: Yes normal visual inspection Chest Chest palpation & inspection: normal inspection of the chest Resp Auscultation: clear to auscultation bilaterally Cardio Palpation: normal PMI Heart sounds: S1 normal heart sound present, S2 normal heart sound present, no gallops, no murmurs and no rubs GI Palpation (GI): Soft to palpation Back/Spine/Pelvis Other: unremarkable Skin General skin exam: no rashes or lesions noted Neuro General: patient oriented x3 Extrem General: Yes normal to inspection Psych Mental Status: mental status grossly normal Office Procedures EKG Details: EKG with sinus bradycardia at 57/Min; no significant ST-T changes; borderline AR prolongation to 210 millisecond; [place]. [id number], Complete Assessment & Plan Assessment & Plan (1) LVH (left ventricular hypertrophy): Code(s): I51.7 - Cardiomegaly Plan: Previously not have hypertrophic cardiomyopathy but last echocardiogram shows only mild concentric left ventricular hypertrophy which could be just from hypertension itself. In the past, also has had moderate diastolic dysfunction but more recently nothing of significance. Continue blood pressure medications. (2) Essential hypertension: Code(s): I10 - Essential (primary) hypertension Plan: Stable. No changes. (3) Sinus bradycardia: Code(s): R00.1 - Bradycardia, unspecified Plan: Asymptomatic. No specific management. Will avoid any rate slowing agents for hypertension care. Plan Considering recent episode of shortness of breath, heart racing and other symptoms, we will reassess with an echocardiogram and stress test due to multiple vascular comorbidities including diabetes, hypertension, dyslipidemia. He is agreeable. Orders: Orders CA echo transthoracic complete Today I25.10 - Atherosclerotic heart disease of [place] coronary artery without angina pectoris, I51.7 - Cardiomegaly NM cardiolite stress test Today I51.7 - Cardiomegaly, R07.2 - Precordial pain CA stress test Today I51.7 - Cardiomegaly, R07.2 - Precordial pain Medications: Changed From dicyclomine 10 mg PO BID 180 caps 1RF To dicyclomine 10 mg PO BID From nabumetone 750 mg PO BID 60 tabs 1RF M70.62 - Trochanteric bursitis, left hip, M77.11 - Lateral epicondylitis, right elbow To nabumetone 750 mg PO BID M70.62 - Trochanteric bursitis, left hip, M77.11 - Lateral epicondylitis, right elbow From metaxalone 800 mg PO TID PRN 75 tabs 1RF muscle pain M51.36 - Other intervertebral disc degeneration, lumbar region To metaxalone 800 mg PO TID PRN M51.36 - Other intervertebral disc degeneration, lumbar region Coding Level of Care Code Est Pt Level 4 (36366) Diagnoses LVH (left ventricular hypertrophy) I51.7 Essential hypertension I10 Sinus bradycardia R00.1 CPT Codes EKG - CPT: 00754-[id number], Complete ([id number])
== END 2023-01-18 15:13 | disposition home or self-care (01) ==
PROVIDERS: PCP Internal Medicine; Visit Provider Internal Medicine
DX: I51.7 Cardiomegaly (principal); I10 Essential (primary) hypertension; R00.1 Bradycardia, unspecified
CPT/HCPCS: 93010; 99214

== ENCOUNTER → 2023-01-18 14:17 | Outpatient (BNVA) | payer BC, SELFPAY | PROVIDERS: PCP Internal Medicine; Visit Provider Internal Medicine | DX: I51.7 Cardiomegaly (principal); I10 Essential (primary) hypertension; R00.1 Bradycardia, unspecified | CPT/HCPCS: 93005 ==

== ENCOUNTER 2023-01-25 10:58 | Outpatient (AMB) | payer BC, SELFPAY ==
[2023-01-25 11:07] VITALS: BP 140/82; PULSE 82; O2SAT 98; BMI 33.0
--- NOTE | 2023-01-25 11:07 | A.OFFPC_ITS ---
Vital Signs 01/25/23 11:07 01/25/23 12:03 Height 5 ft 8 in Weight 217 lb BMI 33.0 BP 140/82 H 120/70 Blood Pressure Location Lt brachial Lt brachial Position Sitting Sitting Pulse 82 Pulse Source Pulse Oximeter Pulse Oximetry (%) 98 Oxygen Delivery Method Room Air Intake Visit Reasons: DM [place] Laborer: Not Required per policy Accompanied by: Self / Same As Patient Allergies metformin Adverse Reaction (Intermediate, Verified 01/25/23 11:07) Diarrhea Tobacco use date assessed: 10/04/22 Fall risk assessment: No Falls in past year Last assessed Fall Risk: 01/25/23 Dental Screening Dental Screen Date: 01/25/23 Did you have a dental visit in the last 12 months?: No Did you have a dental problem in the last 6 months where you did not have access to dental care?: No Was dental information given to patient?: Patient has dentist HPI DM HPI Details 67-year-old obese male with diabetes tonie litus hypercholesterolemia hypertension gout coming in for follow-up. Last seen in September 2022. Patient is up-to-date with colonoscopy. Review of the notes in January 18 patient was seen by Cardiology for the history of hypertrophic cardiomyopathy echocardiogram did show mild concentric left ventricular hypertrophy and not cardiomyopathy. Had moderate diastolic dysfunction but more recently negative advised to echocardiogram(02/03/2023) and stress test 02/24/2023. had palpitations- August 30 023- [facility] Medical History (Updated 01/25/23 @ 11:58 by Chari Benoit MD) COVID-19 virus infection Genital herpes Type 2 diabetes mellitus with hyperglycemia Insomnia Hypercholesterolemia BPH (benign prostatic hyperplasia) Degenerative disc disease, lumbar Obesity (BMI 30-39.9) Vitamin D deficiency Mitral regurgitation Hypertrophic cardiomyopathy Surgical History History of testicular surgery Family History Father Acute CVA (cerebrovascular accident) Stroke Mother Hypertension Alzheimers disease Sister Stomach cancer Family/Other Prostate cancer Leukemia Social History Housing: House Alcohol intake: never Patient Tobacco Use Status: Former Tobacco user Tobacco use type: Cigarette Years Smoked: quit 1989 e-Cigarette/Vaping Use: Never Used Second Hand Smoke Exposure: No service: No Current occupational status: employed Cognitive needs: No Hearing needs: No Vision needs: Yes Questionnaire PHQ-9 Over the last 2 weeks, how often have you been bothered by any of the following problems? 1. Little interest or pleasure in doing things: not at all 2. Feeling down, depressed, or hopeless: not at all 3. Trouble falling or staying asleep, or sleeping too much: not at all 4. Feeling tired or having little energy: not at all 5. Poor appetite or overeating: not at all 6. Feeling bad about yourself - or that you are a failure or have let yourself or your family down: not at all 7. Trouble concentrating on things, such as reading the newspaper or watching television: not at all 8. Moving or speaking so slowly that other people could have noticed. Or the opposite - being so fidgety or restless that you have been moving around a lot more than usual: not at all 9. Thoughts that you would be better off or of hurting yourself in some way: not at all Total score: 0 Depression Screening Interpretation: Negative Source: Developed by Drs. Shai Duarte, Yanely Jeffrey, Wing Moreira and colleagues, with an educational michael from [employer]. Thrive Questionnaire Date Thrive assessed: 07/01/22 AUDIT C Alcohol Use Questionnaire (AUDIT-C) 1. How often do you have a drink containing alcohol?: Never 2. How many drinks containing alcohol do you have on a typical day when you are drinking?: 1 or 2 3. How often do you have six or more drinks on one occasion?: Never Total Score: 0 ALISON-7 AMB Questionnaire ALISON-7 Date ALISON - 7 assessed: 07/01/22 Source: Developed by Drs. Shai Duarte, Yanely Jeffrey, Wing rudolph nd colleagues, with an educational michael from [employer]. Physical exam (Primary Care) Vital Signs: Last Vital Signs Pulse 82 01/25/23 11:07 BP 120/70 01/25/23 12:03 Pulse Ox 98 01/25/23 11:07 Oxygen Delivery Method Room Air 01/25/23 11:07 BMI result Body Mass Index 33.0 Tobacco/Smoking Status: Tobacco use Status Tobacco use date assessed 10/04/22 01/25/23 11:08 Patient Tobacco Use Status Former Tobacco user 01/25/23 11:08 Tobacco use type Cigarette 01/25/23 11:08 e-Cigarette/Vaping Use Never Used 01/25/23 11:08 PHQ-9: PHQ-9 Score PHQ-9: Total score 0 01/25/23 12:12 Depression Screening Interpretation: Negative Thrive Assessment: Date of Thrive Assessment Date Thrive assessed 07/01/22 01/25/23 11:08 Const General: alert; No acute distress Eyes Conjunctivae: conjunctivae normal Resp Auscultation: clear to auscultation bilaterally Cardio Rate: regular rate Rhythm: regular rhythm GI Inspection: Yes normal to inspection Extrem General: Yes normal to inspection and No edema Immunizations pneumoc 20-mendoza conj-dip cr(PF) 0.5 mL IM syringe Performing Provider: Chari Benoit MD Performing Location: [facility] Administered by: Sahra Ybarra CMA on 01/25/23 12:12 Dose Route Admin Location Dispensed Lot Number Expiration Date [employer] 0.5 mL IM Left Deltoid 0.5 mL [id number] 01/30/24 7014-6061-10 [employer] VIS Given Date VIS Provided VIS Publication Date 01/25/23 Single Vaccine 21 Eligibility Eligibility Date Funding Source Not [facility] Eligible 01/25/23 Private Assessment and Plan Assessment & Plan (1) Type 2 diabetes mellitus with hyperglycemia: Comment: [facility] Code(s): E11.65 - Type 2 diabetes mellitus with hyperglycemia Qualifiers: Diabetes mellitus terminal operations manager insulin use: without terminal operations manager use Qualified Code(s): E11.65 - Type 2 diabetes mellitus with hyperglycemia Plan: Decrease the amount of carbohydrate intake, pasta, bread, rice and potatoes are all sugar and that is aside from all the sweet stuff, remember that fruits are good but they are Sweet also. Hemoglobin A1c goal of less than 7.0 (2) Essential hypertension: Code(s): I10 - Essential (primary) hypertension Plan: Continue with blood pressure medication. Decrease salt intake and exercise patient takes lisinopril 10 mg once a day (3) Hypercholesterolemia: Code(s): E78.00 - Pure hypercholesterolemia, unspecified Plan: Avoid fried foods, chicken skin, eggs, butter margarine, pastries and meat. Be it pork or beef they have a lot of cholesterol LDL goal of less than 100 and triglyceride of less than 150 patient is on atorvastatin 40 mg once a day July 2022 last blood work (4) Obesity (BMI 30-39.9): Code(s): E66.9 - Obesity, unspecified Plan: Diet and exercise (5) Hypertrophic cardiomyopathy: Comment: June 2018 stress negative Code(s): I42.2 - Other hypertrophic cardiomyopathy Plan: Patient is being followed up by Cardiology and workup is being done with echocardiogram and stress test. Last echo did not show the hypertrophic cardiomyopathy Orders: Orders Free T4 (Free Thyroxine) 6 Months E11.65 - Type 2 diabetes mellitus with hyperglycemia Creatinine Urine 6 Months E11.65 - Type 2 diabetes mellitus with hyperglycemia Microalbumin, Random (w Creat) 6 Months E11.65 - Type 2 diabetes mellitus with hyperglycemia Vitamin B12 and Folate 6 Months E11.65 - Type 2 diabetes mellitus with hyperglycemia Lipid Panel 6 Months E11.65 - Type 2 diabetes mellitus with hyperglycemia, E78.00 - Pure hypercholesterolemia, unspecified AMB Hemoglobin A1c Today E11.65 - Type 2 diabetes mellitus with hyperglycemia Complete Blood Count Auto Diff 6 Months E11.65 - Type 2 diabetes mellitus with hyperglycemia Comprehensive Met. Panel 6 Months E11.65 - Type 2 diabetes mellitus with hyperglycemia Thyroid Stimulating Hormone 6 Months E11.65 - Type 2 diabetes mellitus with hyperglycemia Prostate Specific Antigen Scr 6 Months E11.65 - Type 2 diabetes mellitus with hyperglycemia Medications: Refilled zolpidem (Ambien) 10 mg PO BEDTIME PRN 30 tabs 0RF sleep G47.00 - Insomnia, unspecified Coding Level of Care Code Est Pt Level 4 (32501) Diagnoses Type 2 diabetes mellitus with hyperglycemia, without long-term current use of insulin E11.65 Diabetes mellitus skilled nursing insulin use: without terminal operations manager use Essential hypertension I10 Hypercholesterolemia E78.00 Obesity (BMI 30-39.9) E66.9 Hypertrophic cardiomyopathy I42.2
[2023-01-25 12:03] VITALS: BP 120/70
== END 2023-01-25 12:19 | disposition home or self-care (01) ==
PROVIDERS: PCP Internal Medicine; Visit Provider Internal Medicine
DX: E11.65 Type 2 diabetes mellitus with hyperglycemia (principal); I10 Essential (primary) hypertension; E66.9 Obesity, unspecified; Z68.33 Body mass index [BMI] 33.0-33.9, adult; Z23 Encounter for immunization; E78.00 Pure hypercholesterolemia, unspecified; I42.2 Other hypertrophic cardiomyopathy
CPT/HCPCS: 90471; 90677; 99214

== ENCOUNTER → 2023-02-03 12:34 | Outpatient (REF) | payer BC, SELFPAY | LOC: HO.CARD 12:34 | PROVIDERS: PCP Internal Medicine; Visit Provider Internal Medicine | DX: I25.10 Atherosclerotic heart disease of native coronary artery without angina pectoris (principal); I51.7 Cardiomegaly | CPT/HCPCS: 93306 ==

== ENCOUNTER → 2023-02-03 12:36 | Outpatient (BNV) | payer BC, SELFPAY | PROVIDERS: PCP Internal Medicine; Visit Provider Internal Medicine | DX: I25.10 Atherosclerotic heart disease of native coronary artery without angina pectoris (principal) | CPT/HCPCS: 93306 ==

== ENCOUNTER → 2023-02-24 07:44 | Outpatient (REF) | payer BC, SELFPAY ==
--- NOTE | ~2023-02-24 | NM_ITS ---
Exercise Myocardial perfusion study Indication: Precordial pain to evaluate for myocardial ischemia Technique: The patient was brought in for an exercise perfusion study on 02/24/2023. Patient performed exercise as per Zeeshan protocol and was injected 35 mCi of sestamibi was given intravenously one target HR was achieved. Images were obtained using the SPECT gamma camera interlaced with the gating device. Images were obtained in supine position. Resting perfusion study was performed on 02/27/2023. Patient was administered 35 mCi of sestamibi intravenously at rest. Images were then obtained in supine position. Images obtained with and without CT attenuation. Total DLP 108 my-cm. Images were processed with the software and compared side to side in short axis, horizontal long axis and vertical long axis views. Findings: The stress perfusion study showed non attenuated images showed normal uptake of radiotracer in all segments of LV myocardium. Attenuation corrected images show minimal thinning of the apex of the LV myocardium.. The gated study shows normal LV systolic function with calculated LVEF of 64%. LV cavity is normal in size. The gated study shows normal systolic wall thickening and contraction of all segments. There is no transient ischemic dilation. Resting study shows no change in perfusion pattern compared to stress perfusion study. Gating at rest reveals normal systolic wall motion with ejection fraction at 65%. The findings are consistent with no clear reversible defect suggestive of ischemia. Normal myocardial perfusion. NM/NM cardiolite stress test Impression: 1. Normal myocardial perfusion 2. Gated LVEF is 64% 3. Transient ischemic dilatation not present Stress EKG is positive for ischemia
--- NOTE | 2023-02-24 07:46 | CA_ITS ---
Acquisition Time: 2023-02-24 07:57:50 Total Exercise Time: 00:07:00 Test Indications: CAD SB Medications: SEE H Protocol: ARINA Max HR: 148 BPM 95% of Pred: 155 BPM Max BP: 188/058 mmHG Max Work Load: 8.5 METS Exercise stress test with exercise 7 min of Arina protocol, achieving 95% MPHR, with mild shortness of breath, no chest discomfort, with few isolated PACs, with normotensive response to exercise, with EKG changes meeting criteria for ischemia in V5-V6 which improves quickly in recovery, then has downsloping ST segment in V6 later in recovery. Nuclear images pending. Test reviewed with Dr Serrano Referred By: Jose Juan Perales Overread By: JAMAL CARRANZA
== END ==
LOC: HO.CARD 07:44
PROVIDERS: PCP Internal Medicine; Visit Provider Internal Medicine
DX: R07.2 Precordial pain (principal); I51.7 Cardiomegaly
CPT/HCPCS: 78452; 93017; A9500

== ENCOUNTER → 2023-02-24 07:46 | Outpatient (BNV) | payer BC, SELFPAY | PROVIDERS: PCP Internal Medicine; Visit Provider Nurse Practitioner Family | DX: R07.2 Precordial pain (principal); I51.7 Cardiomegaly | CPT/HCPCS: 78452; 93016; 93018 ==

== ENCOUNTER 2023-06-30 07:55 | Outpatient (REF) | payer BC, SELFPAY ==
[2023-06-30 08:13] LABS: MANUAL DIFF FLAG NO
[2023-06-30 08:54] LABS: Basophils Absolute Auto 0.1 X10*3/uL (0.0-0.2); Basophils Percent Auto 0.7 % (0-2); Eosinophils Absolute Auto 0.1 X10*3/uL (0.0-0.4); Eosinophils Percent Auto 1.6 % (0-4); Hematocrit 42.4 % (42.0-52.0); Hemoglobin 14.1 g/dl (14.0-18.0); Imm Gran Abs Auto 0.03 X10*3/uL (0.00-0.03); Imm Gran Pct Auto 0.3 % (0.0-0.4); Lymphocytes Absolute Auto 2.2 X10*3/uL (1.2-4.9); Lymphocytes Percent Auto 25.6 % (20-40); Mean Corpuscular HGB Conc 33.3 g/dl (31.0-36.0); Mean Corpuscular Hemoglobin 27.4 pg (27.0-33.0); Mean Corpuscular Volume 82.5 fL (80.0-98.0); Mean Platelet Volume 10.4 fL (9.4-12.4); Monocytes Absolute Auto 0.9 X10*3/uL (0.1-1.2); Monocytes Percent Auto 10.4 % (2-11); Neutrophils Absolute Auto 5.4 x10*3/uL (2.0-8.3); Neutrophils Percent Auto 61.4 % (45-73); Platelet Count 237 X10*3/uL (160-400); Red Blood Count 5.14 X10*6/uL (4.60-5.80); Red Cell Distribution Width 13.6 % (11.0-16.0); White Blood Count 8.7 X10*3/uL (4.8-10.8)
[2023-06-30 09:32] LABS: Creatinine Urine 194.34 mg/dL; Microalbum/Creatinine Ratio Ur 12.8 ug/mg cr (<30)
[2023-06-30 09:48] LABS: Alanine Aminotransferase 21 U/L (0-40); Albumin Level 4.1 g/dL (3.5-5.0); Alkaline Phosphatase 43 U/L (39-117); Anion Gap 11 (12-20); Aspartate Amino Transferase 17 U/L (5-37); Bilirubin Total 0.7 mg/dL (0.0-1.0); Blood Urea Nitrogen 20 mg/dL (9-16); Calcium 9.3 mg/dL (8.4-10.2); Carbon Dioxide 26 mmol/L (22-29); Chloride 107 mmol/L (96-108); Cholesterol 140 mg/dL (<200); Estimated Glomerular Filt Rate > 60; Glucose Random 92 mg/dL (60-115); HDL Cholesterol 44 mg/dL (>40); LDL Cholesterol Calculated 87 mg/dL (<100); Potassium 3.9 mmol/L (3.3-5.1); Sodium 140 mmol/L (135-145); Total Protein 7.1 g/dL (6.5-8.0); Triglycerides 47 mg/dL (<150)
[2023-06-30 09:53] LABS: Free T4 (Free Thyroxine) 0.72 ng/dL (0.71-1.85); Thyroid Stimulating Hormone 0.96 uIU/mL (0.32-4.0)
[2023-06-30 10:08] LABS: Folate 10.7 ng/mL (> or = 4.0); Prostate Specific Antigen Scr 0.39 ng/mL (<0.05-4.0); Vitamin B12 428 pg/mL (200-900)
== END 2023-06-30 07:56 | disposition home or self-care (01) ==
LOC: HO.LAB 07:55
PROVIDERS: PCP Internal Medicine; Visit Provider Internal Medicine
DX: Z12.5 Encounter for screening for malignant neoplasm of prostate (principal); E11.65 Type 2 diabetes mellitus with hyperglycemia; E78.00 Pure hypercholesterolemia, unspecified
CPT/HCPCS: 36415; 80053; 80061; 82043; 82570; 82607; 82746; 84153; 84439; 84443; 85025

== ENCOUNTER 2023-07-03 13:17 | Outpatient (AMB) | payer BC, SELFPAY ==
--- NOTE | 2023-07-03 13:27 | MHC.PC.OV ---
Vital Signs 07/03/23 13:31 Height 5 ft 8 in Weight 223 lb 2 oz BMI 33.9 BP 112/60 Blood Pressure Location Lt brachial Position Sitting Pulse 57 Pulse Source Pulse Oximeter Pulse Oximetry (%) 98 Oxygen Delivery Method Room Air Intake Visit Reasons: PE Intake Note: Patient is here today for a physical. Jig Inspector Required: No Websphere Portal Architect: Not Required per policy Accompanied by: Self / Same As Patient Allergies metformin Adverse Reaction (Intermediate, Verified 07/03/23 13:29) Diarrhea Medication List - Last Reconciled 07/03/23 by Chari Benoit MD ascorbate calcium (vitamin C) 500 mg PO DAILY atorvastatin 40 mg PO DAILY 90 days blood sugar diagnostic (FreeStyle Test strips) As directed check BS QD clotrimazole 1% 1 appl topical BID 4 weeks ferrous sulfate (Feosol) 325 mg PO DAILY lancets (FreeStyle Lancets) As directed check BS QD lisinopril 10 mg PO DAILY 90 days multivitamin 1 tab PO DAILY nabumetone 750 mg PO BID sitagliptin phosphate (Januvia) 100 mg PO DAILY 90 days tamsulosin 0.4 mg PO DAILY zolpidem (Ambien) 10 mg PO BEDTIME PRN Tobacco use date assessed: 07/03/23 Fall risk assessment: No Falls in past year Last assessed Fall Risk: 07/03/23 Dental Screening Dental Screen Date: 07/03/23 Did you have a dental visit in the last 12 months?: Yes Did you have a dental problem in the last 6 months where you did not have access to dental care?: No Was dental information given to patient?: Patient has dentist HPI PE HPI Details 67-year-old obese male with controlled diabetes mellitus hypertension hypercholesterolemia hypertrophic cardiomyopathy last seen in December 2022. Patient is up-to-date with colonoscopy. Review of the notes in January 2023 had myocardial perfusion study showing normal myocardial perfusion with an ejection fraction of 64% patient also had the echocardiogram done in January 2023:The left ventricular systolic function is normal. The calculated ejection fraction is 68% by biplane method. - No obvious valvular pathology seen on this study. dizzy [facility] Medical History (Updated 01/25/23 @ 11:58 by Chari Benoit MD) COVID-19 virus infection Genital herpes Type 2 diabetes mellitus with hyperglycemia Insomnia Hypercholesterolemia BPH (benign prostatic hyperplasia) Degenerative disc disease, lumbar Obesity (BMI 30-39.9) Vitamin D deficiency Mitral regurgitation Hypertrophic cardiomyopathy Surgical History History of testicular surgery Family History Father Acute CVA (cerebrovascular accident) Stroke Mother Hypertension Alzheimers disease Sister Stomach cancer Family/Other Prostate cancer Leukemia Social History Housing: House Alcohol intake: never Patient Tobacco Use Status: Former Tobacco user Tobacco use type: Cigarette Years Smoked: 1989 e-Cigarette/Vaping Use: Never Used Second Hand Smoke Exposure: No service: No Current occupational status: employed Cognitive needs: No Hearing needs: No Vision needs: Yes (Glasses) Questionnaire PHQ-9 Over the last 2 weeks, how often have you been bothered by any of the following problems? 1. Little interest or pleasure in doing things: not at all 2. Feeling down, depressed, or hopeless: not at all 3. Trouble falling or staying asleep, or sleeping too much: not at all 4. Feeling tired or having little energy: not at all 5. Poor appetite or overeating: not at all 6. Feeling bad about yourself - or that you are a failure or have let yourself or your family down: not at all 7. Trouble concentrating on things, such as reading the newspaper or watching television: not at all 8. Moving or speaking so slowly that other people could have noticed. Or the opposite - being so fidgety or restless that you have been moving around a lot more than usual: not at all 9. Thoughts that you would be better off or of hurting yourself in some way: not at all Total score: 0 Depression Screening Interpretation: Negative Depression Screening Done: Yes Source: Developed by Drs. Shai Duarte, Yanely Jeffrey, Wing Moreira and colleagues, with an educational michael from [employer]. Thrive Questionnaire Date Thrive assessed: 07/03/23 I am a: Patient What is your living situation today?: I have a steady place to live Within the past 12 months, did the food you bought not last and you didn't have the money to get more?: Never true Within the past 12 months, did you worry whether your food would run out before you got money to buy more?: Never true Do you have trouble paying for medicines?: No Do you have trouble getting transportation to medical appointments?: No Do you have trouble paying your heating and electricity bill?: No Do you have trouble taking care of your child, family member or friend?: No Do you have trouble with day-to-day activities such as bathing, preparing meals, shopping, managing finances, etc.?: No Are you currently unemployed and looking for a job?: No Are you interested in more education?: No Currently or been in a relationship where the following occur: no concerns reported THRIVE Score: 0 AUDIT C Alcohol Use Questionnaire (AUDIT-C) 1. How often do you have a drink containing alcohol?: Never Total Score: 0 ALISON-7 AMB Questionnaire ALISON-7 Date ALISON - 7 assessed: 07/03/23 Feeling nervous, anxious, or on edge: 0 = Not at all Not being able to stop or control worryin = Not at all Worrying too much about different things: 0 = Not at all Trouble relaxin = Not at all Being so restless that it is hard to sit still: 0 = Not at all Becoming easily annoyed or irritable: 0 = Not at all Feeling afraid as if something awful might happen: 0 = Not at all Total ALISON-7 score (0-4 normal; 5-9 mild; 10-14 moderate; 15-21 severe): 0 Source: Developed by Drs. Shai Duarte, Yanely Jeffrey, Wing Moreira and colleagues, with an educational michael from [employer]. Review of Systems Const Denies poor appetite and Denies weakness Eyes Denies no additional complaints ENT Reports Normal hearing present, Denies dizziness, Denies nasal congestion, Denies tinnitus and Denies sore throat Card Denies chest pain, Denies syncope, Denies rapid heart rate and Denies dyspnea Resp Denies cough and Denies dyspnea GI Denies change in stool character, Reports constipation, Denies diarrhea, Denies nausea and Denies vomiting Denies dysuria and Denies urinary frequency Neuro Reports Normal hearing present, Denies confusion, Denies dizziness, Denies syncope and Denies weakness Psych Denies confusion Physical exam (Primary Care) Tobacco/Smoking Status: Tobacco use Status Tobacco use date assessed 10/04/22 01/25/23 11:08 Patient Tobacco Use Status Former Tobacco user 01/25/23 11:08 Tobacco use type Cigarette 01/25/23 11:08 e-Cigarette/Vaping Use Never Used 01/25/23 11:08 Depression Screening Interpretation: Negative Thrive Assessment: Date of Thrive Assessment Date Thrive assessed 07/01/22 01/25/23 11:08 Currently or been in a relationship where the following occur: no concerns reported Const General: No confusion Orientation/consciousness: No confusion HENMT Head: Yes normocephalic Ears: external ears normal and TM's normal bilaterally Face and sinus: Yes normal facial exam Mouth: moist mucous membranes Throat: Yes tonsils normal Eyes Conjunctivae: conjunctivae normal Pupils: Equal, round and reactive pupils present and Pupil accommodation reflex normal Direct Ophthalmoscopy: normal light reflex Neck Neck: No lymphadenopathy Thyroid: Thyroid normal Chest Chest palpation & inspection: normal inspection of the chest Resp Effort & Inspection: normal respiratory effort and no audible wheezes Auscultation: clear to auscultation bilaterally, no crackles, no wheezes and lung sounds not diminished Cardio Rate: regular rate Rhythm: regular rhythm Peripheral pulses: radial pulses present and dorsalis pedis present GI Other: guaiac neg, prostate N Palpation (GI): no masses Auscultation: normal bowel sounds and normoactive bowel sounds Male General Exam: Yes normal external exam Skin General skin exam: no rashes or lesions noted Rashes: no rashes Neuro General: No confusion Cranial nerves: Yes Equal, round and reactive pupils present and Yes Normal hearing present Cognition (Neuro): normal cognition Gait exam (Neuro): Normal gait present Motor exam (neuro): 5/5 motor strength present throughout Deep tendon reflexes (DTR's): Right brachioradialis reflex intensity grade: 2+, Left brachioradialis reflex intensity grade: 2+, Right patellar reflex intensity grade: 2+ and Left patellar reflex intensity grade: 2+ Extrem General: No edema Results AMB Hemoglobin A1c AMB Hemoglobin A1c 6.7 % Last Edit by RADHA Figueredo on 07/03/23 13:53 Assessment and Plan Assessment & Plan (1) Annual physical exam: Code(s): Z00.00 - Encounter for general adult medical examination without abnormal findings (2) Type 2 diabetes mellitus with hyperglycemia: Comment: [facility] Code(s): E11.65 - Type 2 diabetes mellitus with hyperglycemia Qualifiers: Diabetes mellitus director long term care insulin use: without director long term care use Qualified Code(s): E11.65 - Type 2 diabetes mellitus with hyperglycemia Plan: Decrease the amount of carbohydrate intake, pasta, bread, rice and potatoes are all sugar and that is aside from all the sweet stuff, remember that fruits are good but they are Sweet also. Hemoglobin A1c goal of less than 6.5 patient is on Januvia 100 mg once a day (3) Obesity (BMI 30-39.9): Code(s): E66.9 - Obesity, unspecified Plan: Diet and exercise (4) Hypercholesterolemia: Code(s): E78.00 - Pure hypercholesterolemia, unspecified Plan: Avoid fried foods, chicken skin, eggs, butter margarine, pastries and meat. Be it pork or beef they have a lot of cholesterol LDL goal lesser all of less than 100 and triglyceride of less than 150 patient on atorvastatin 40 mg once a day (5) Essential hypertension: Code(s): I10 - Essential (primary) hypertension Plan: Continue with blood pressure medication. Decrease salt intake and exercise on lisinopril 10 mg once a day (6) Hypertrophic cardiomyopathy: Comment: June 2018 stress negative Code(s): I42.2 - Other hypertrophic cardiomyopathy Plan: Patient just had a workup with stress test and echocardiogram within normal limits. Orders: Orders AMB Hemoglobin A1c Today E11.65 - Type 2 diabetes mellitus with hyperglycemia Medications: Refilled zolpidem (Ambien) 10 mg PO BEDTIME PRN 30 tabs 0RF sleep G47.00 - Insomnia, unspecified Coding Level of Care Code Est Pt Prev Care >65y(64697) Diagnoses Annual physical exam Z00.00 Type 2 diabetes mellitus with hyperglycemia, without long-term current use of insulin E11.65 Diabetes mellitus correction insulin use: without director long term care use Obesity (BMI 30-39.9) E66.9 Hypercholesterolemia E78.00 Essential hypertension I10 Hypertrophic cardiomyopathy I42.2
[2023-07-03 13:31] VITALS: BP 112/60; PULSE 57; O2SAT 98; BMI 33.9
== END 2023-07-03 14:09 | disposition home or self-care (01) ==
PROVIDERS: Visit Provider Internal Medicine
DX: Z00.00 Encounter for general adult medical examination without abnormal findings (principal); E11.65 Type 2 diabetes mellitus with hyperglycemia; I42.2 Other hypertrophic cardiomyopathy; E66.9 Obesity, unspecified; Z68.33 Body mass index [BMI] 33.0-33.9, adult; E78.00 Pure hypercholesterolemia, unspecified; I10 Essential (primary) hypertension
CPT/HCPCS: 83036; 99397

== ENCOUNTER 2023-10-12 09:17 | Outpatient (AMB) | payer BC, SELFPAY ==
--- NOTE | 2023-10-12 09:22 | A.OFFPC_ITS ---
Vital Signs 10/12/23 09:23 10/12/23 09:45 Height 5 ft 8 in Weight 219 lb BMI 33.3 BP 140/72 H 120/70 Blood Pressure Location Lt brachial Lt brachial Position Sitting Sitting Pulse 80 Pulse Source Pulse Oximeter Pulse Oximetry (%) 98 Oxygen Delivery Method Room Air Intake Visit Reasons: DM Allergies metformin Adverse Reaction (Intermediate, Verified 10/12/23 09:23) Diarrhea Tobacco use date assessed: 07/03/23 Fall risk assessment: No Falls in past year Last assessed Fall Risk: 10/12/23 Dental Screening Dental Screen Date: 07/03/23 HPI DM HPI Details 67-year-old obese male with diabetes tonie litus hypercholesterolemia hypertension coming in for follow-up last seen in 07/19/2023. Patient is up-to-d ate with colonoscopy. Noted weight loss. [facility] Medical History (Updated 01/25/23 @ 11:58 by Chari Benoit MD) COVID-19 virus infection Genital herpes Type 2 diabetes mellitus with hyperglycemia Insomnia Hypercholesterolemia BPH (benign prostatic hyperplasia) Degenerative disc disease, lumbar Obesity (BMI 30-39.9) Vitamin D deficiency Mitral regurgitation Hypertrophic cardiomyopathy Surgical History History of testicular surgery Family History Father Acute CVA (cerebrovascular accident) Stroke Mother Hypertension Alzheimers disease Sister Stomach cancer Family/Other Prostate cancer Leukemia Social History Housing: House Alcohol intake: never Patient Tobacco Use Status: Former Tobacco user Tobacco use type: Cigarette Years Smoked: 1989 e-Cigarette/Vaping Use: Never Used Second Hand Smoke Exposure: No service: No Current occupational status: employed Cognitive needs: No Hearing needs: No Vision needs: Yes (Glasses) Questionnaire PHQ-9 Over the last 2 weeks, how often have you been bothered by any of the following problems? 1. Little interest or pleasure in doing things: not at all 2. Feeling down, depressed, or hopeless: not at all 3. Trouble falling or staying asleep, or sleeping too much: not at all 4. Feeling tired or having little energy: not at all 5. Poor appetite or overeating: not at all 6. Feeling bad about yourself - or that you are a failure or have let yourself or your family down: not at all 7. Trouble concentrating on things, such as reading the newspaper or watching television: not at all 8. Moving or speaking so slowly that other people could have noticed. Or the opposite - being so fidgety or restless that you have been moving around a lot more than usual: not at all 9. Thoughts that you would be better off or of hurting yourself in some way: not at all Total score: 0 Depression Screening Interpretation: Negative Depression Screening Done: Yes Source: Developed by Drs. Shai Duarte, Yanely Jeffrey, Wing Moreira and colleagues, with an educational michael from [employer]. Thrive Questionnaire Date Thrive assessed: 07/03/23 ALISON-7 AMB Questionnaire ALISON-7 Date ALISON - 7 assessed: 07/03/23 Source: Developed by Drs. Shai Duarte, Yanely Jeffrey, Wing Moreira and colleagues, with an educational michael from [employer]. Physical exam (Primary Care) Vital Signs: Last Vital Signs Pulse 80 10/12/23 09:23 BP 120/70 10/12/23 09:45 Pulse Ox 98 10/12/23 09:23 Oxygen Delivery Method Room Air 10/12/23 09:23 BMI result Body Mass Index 33.3 Tobacco/Smoking Status: Tobacco use Status Tobacco use date assessed 07/03/23 10/12/23 09:24 Patient Tobacco Use Status Former Tobacco user 10/12/23 09:24 Tobacco use type Cigarette 10/12/23 09:24 e-Cigarette/Vaping Use Never Used 10/12/23 09:24 PHQ-9: PHQ-9 Score PHQ-9: Total score 0 10/12/23 09:43 Depression Screening Interpretation: Negative Thrive Assessment: Date of Thrive Assessment Date Thrive assessed 07/03/23 10/12/23 09:24 Const General: alert; No acute distress Eyes Conjunctivae: conjunctivae normal Resp Auscultation: clear to auscultation bilaterally Cardio Rate: regular rate Rhythm: regular rhythm GI Inspection: Yes normal to inspection Extrem General: Yes normal to inspection and No edema Results AMB Hemoglobin A1c AMB Hemoglobin A1c 6.7 % Last Edit by Sahra Ybarra CMA on 10/12/23 09 :43 Results Reviewed Results Reviewed: Laboratory Last Values Hgb A1c (Clinic) 6.7 % (4.0-6.0) H 10/12/23 09:25 Assessment and Plan Assessment & Plan (1) Type 2 diabetes mellitus with hyperglycemia: Comment: [facility] Code(s): E11.65 - Type 2 diabetes mellitus with hyperglycemia Qualifiers: Diabetes mellitus rodent exterminator insulin use: without alf use Qualified Code(s): E11.65 - Type 2 diabetes mellitus with hyperglycemia Plan: Decrease the amount of carbohydrate intake, pasta, bread, rice and potatoes are all sugar and that is aside from all the sweet stuff, remember that fruits are good but they are Sweet also. Hemoglobin A1c goal of less than 7.0 on Januvia only (2) Hypercholesterolemia: Code(s): E78.00 - Pure hypercholesterolemia, unspecified Plan: Avoid fried foods, chicken skin, eggs, butter margarine, pastries and meat. Be it pork or beef they have a lot of cholesterol LDL goal of less than 100 and triglyceride of less than 150 07/18/2022 last blood work LDL 87 (3) Essential hypertension: Code(s): I10 - Essential (primary) hypertension Plan: Continue with blood pressure medication. Decrease salt intake and exercise on lisinopril 10 mg once a day Orders: Orders AMB Hemoglobin A1c Today Z13.9 - Encounter for screening, unspecified Medications: New fexofenadine (Tracy Allergy) 180 mg PO DAILY 90 tabs 0RF Refilled zolpidem (Ambien) 10 mg PO BEDTIME PRN 30 tabs 2RF sleep G47.00 - Insomnia, unspecified Coding Level of Care Code Est Pt Level 4 (59707) Complex EM visit Add On G2211 Diagnoses Type 2 diabetes mellitus with hyperglycemia, without long-term current use of insulin E11.65 Diabetes mellitus alf insulin use: without rodent exterminator use Hypercholesterolemia E78.00 Essential hypertension I10
[2023-10-12 09:23] VITALS: BP 140/72; PULSE 80; O2SAT 98; BMI 33.3
[2023-10-12 09:45] VITALS: BP 120/70
== END 2023-10-12 09:54 | disposition home or self-care (01) ==
PROVIDERS: PCP Internal Medicine; Visit Provider Internal Medicine
DX: E11.65 Type 2 diabetes mellitus with hyperglycemia (principal); E78.00 Pure hypercholesterolemia, unspecified; I10 Essential (primary) hypertension
CPT/HCPCS: 83036; 99214

== ENCOUNTER 2024-01-18 08:56 | Outpatient (AMB) | payer BC, SELFPAY ==
--- NOTE | 2024-01-18 09:01 | MHC.OFFVIS ---
Vital Signs 01/18/24 09:02 Height 5 ft 8 in Weight 222 lb 10.67 oz BMI 33.9 BP 120/64 Blood Pressure Location Rt brachial Position Sitting Pulse 67 Pulse Source Monitor Intake Visit Reasons: 1 yr f/ up Sign Board Erector Required: No Accompanied by: Self / Same As Patient Allergies metformin Adverse Reaction (Intermediate, Verified 10/12/23 09:23) Diarrhea Medication List - Last Reconciled 01/18/24 by Jose Juan Perales MD ascorbate calcium (vitamin C) 500 mg PO DAILY atorvastatin 40 mg PO DAILY 90 days blood sugar diagnostic (FreeStyle Test strips) As directed check BS QD clotrimazole 1% 1 appl topical BID 4 weeks ferrous sulfate (Feosol) 325 mg PO DAILY fexofenadine (Tracy Allergy) 180 mg PO DAILY lancets (FreeStyle Lancets) As directed check BS QD lisinopril 10 mg PO DAILY 90 days multivitamin 1 tab PO DAILY nabumetone 750 mg PO BID sitagliptin phosphate (Januvia) 100 mg PO DAILY 90 days tamsulosin 0.4 mg PO DAILY zolpidem (Ambien) 10 mg PO BEDTIME PRN HPI Comments Details: Ti returns for follow-up. In the past, labeled to have hypertrophic cardiomyopathy but this could rather just be from left ventricular hypertrophy from hypertension. Overall, he states he is doing excellent. No complaints like chest pains or shortness of breath or in fact any cardiac symptoms at all. He is getting along fine. [facility] Medical History (Updated 01/25/23 @ 11:58 by Chari Benoit MD) COVID-19 virus infection Genital herpes Type 2 diabetes mellitus with hyperglycemia Insomnia Hypercholesterolemia BPH (benign prostatic hyperplasia) Degenerative disc disease, lumbar Obesity (BMI 30-39.9) Vitamin D deficiency Mitral regurgitation Hypertrophic cardiomyopathy Surgical History History of testicular surgery Family History Father Acute CVA (cerebrovascular accident) Stroke Mother Hypertension Alzheimers disease Sister Stomach cancer Family/Other Prostate cancer Leukemia Social History Housing: House Alcohol intake: never Patient Tobacco Use Status: Former Tobacco user Tobacco use type: Cigarette Years Smoked: quit 1989 e-Cigarette/Vaping Use: Never Used Second Hand Smoke Exposure: No service: No Current occupational status: employed Cognitive needs: No Hearing needs: No Vision needs: Yes (Glasses) Review of Systems Const Denies chills, Denies fatigue, Denies fever(s), Denies frequent falls, Denies weakness, Denies weight gain and Denies weight loss ENT Denies dizziness Card Denies chest pain, Denies leg edema, Denies lightheadedness, Denies palpitations, Denies dyspnea and Denies dyspnea on exertion Resp Denies cough, Denies dyspnea and Denies dyspnea on exertion GI Denies hematochezia Musc Denies abnormal gait, Denies muscle weakness, Denies numbness, Denies radiating pain into limb and Denies tingling Neuro Denies abnormal gait, Denies dizziness, Denies frequent falls, Denies numbness, Denies tingling and Denies weakness Endo Denies fatigue and Denies palpitations Physical Exam Vital Signs: Last Vital Signs Pulse 67 01/18/24 09:02 BP 120/64 01/18/24 09:02 BMI result Body Mass Index 33.9 Const General: comfortable and no acute distress Orientation/consciousness: patient oriented x3 HEENT Other: Unremarkable Head: Yes normal to inspection Neck Neck: Yes normal visual inspection Chest Chest palpation & inspection: normal inspection of the chest Resp Auscultation: clear to auscultation bilaterally Cardio Palpation: normal PMI Heart sounds: S1 normal heart sound present, S2 normal heart sound present, no gallops, no murmurs and no rubs GI Palpation (GI): Soft to palpation Back/Spine/Pelvis Other: unremarkable Skin General skin exam: no rashes or lesions noted Neuro General: patient oriented x3 Extrem General: Yes normal to inspection Psych Mental Status: mental status grossly normal Office Procedures EKG Details: EKG with underlying sinus rhythm at 67/Min; no significant ST-T changes; borderline prolonged WA at 204 millisecond; [place]. [id number], Complete Assessment & Plan Assessment & Plan (1) LVH (left ventricular hypertrophy): Code(s): I51.7 - Cardiomegaly Category: Medical Plan: Previously documented to have hypertrophic cardiomyopathy, but suspect it is probably all from hypertension. Echocardiogram 2022-LVEF 68%. Peak global longitudinal strain within limits; mild left ventricular hypertrophy; otherwise unremarkable. Myocardial perfusion imaging study from 2022 with normal perfusion at 8.5 METS exercise capacity. EKG changes could be nonspecific. Overall, recommendation is to continue good blood pressure management. (2) Essential hypertension: Code(s): I10 - Essential (primary) hypertension Category: Medical Plan: Stable. Remains on lisinopril (3) Type 2 diabetes mellitus with hyperglycemia: Comment: [facility] Code(s): E11.65 - Type 2 diabetes mellitus with hyperglycemia Category: Medical Qualifiers: Diabetes mellitus [facility] insulin use: without long term care phlebotomist use Qualified Code(s): E11.65 - Type 2 diabetes mellitus with hyperglycemia Plan: On Januvia. Hemoglobin A1c is 6.7%. Within acceptable limits. Coding Level of Care Code Est Pt Level 4 (69669) Diagnoses LVH (left ventricular hypertrophy) I51.7 Essential hypertension I10 Type 2 diabetes mellitus with hyperglycemia, without long-term current use of insulin E11.65 Diabetes mellitus [facility] insulin use: without long term care phlebotomist use CPT Codes EKG - CPT: 96667-[id number], Complete ([id number])
[2024-01-18 09:02] VITALS: BP 120/64; PULSE 67; BMI 33.9
== END 2024-01-18 09:26 | disposition home or self-care (01) ==
PROVIDERS: PCP Internal Medicine; Visit Provider Internal Medicine
DX: I51.7 Cardiomegaly (principal); I10 Essential (primary) hypertension; E11.65 Type 2 diabetes mellitus with hyperglycemia
CPT/HCPCS: 93010; 99214

== ENCOUNTER → 2024-01-18 08:56 | Outpatient (BNVA) | payer BC, SELFPAY | PROVIDERS: PCP Internal Medicine; Visit Provider Internal Medicine | DX: I51.7 Cardiomegaly (principal); I10 Essential (primary) hypertension; E11.65 Type 2 diabetes mellitus with hyperglycemia | CPT/HCPCS: 93005 ==

== ENCOUNTER 2024-03-12 07:51 | Outpatient (AMB) | payer BC, SELFPAY ==
--- NOTE | 2024-03-12 07:59 | A.OFFPC_ITS ---
Vital Signs 03/12/24 08:00 Height 5 ft 8 in Weight 223 lb BMI 33.9 BP 124/70 Blood Pressure Location Lt brachial Position Sitting Pulse 72 Pulse Source Pulse Oximeter Pulse Oximetry (%) 98 Oxygen Delivery Method Room Air Intake Visit Reasons: Gout flare to LT big toe Radiology Orderly Required: No Allergies metformin Adverse Reaction (Intermediate, Verified 03/12/24 08:00) Diarrhea Medication List - Last Reconciled 03/12/24 by Laya Sin PA-C ascorbate calcium (vitamin C) 500 mg PO DAILY atorvastatin 40 mg PO DAILY 90 days blood sugar diagnostic (FreeStyle Test strips) As directed check BS QD clotrimazole 1% 1 appl topical BID 4 weeks ferrous sulfate (Feosol) 325 mg PO DAILY fexofenadine (Tracy Allergy) 180 mg PO DAILY lancets (FreeStyle Lancets) As directed check BS QD lisinopril 10 mg PO DAILY 90 days multivitamin 1 tab PO DAILY nabumetone 750 mg PO BID sitagliptin phosphate (Januvia) 100 mg PO DAILY 90 days tamsulosin 0.4 mg PO DAILY zolpidem (Ambien) 10 mg PO BEDTIME PRN Tobacco use date assessed: 07/03/23 Fall risk assessment: No Falls in past year Last assessed Fall Risk: 03/12/24 Dental Screening Dental Screen Date: 07/03/23 HPI Gout flare to LT big toe HPI Details 68-year-old male with past medical histo ry of diabetes mellitus, hypercholesterolemia, hypertension last seen by Dr. Benoit September 2023 coming in for acute problem. In review of the notes, patient was seen by [facility] Cardiology 01/18/2024 advised to continue with good management of the blood pressure. Patient has a history of gout last attack several years ago. This flare started last week with generalized joint pain that progressively worsened into swelling and pain. The swelling and pain have been slowly improving throughout the week but is still very present. Pain will typically be very mild in the morning and worsened throughout the day. Denies any injuries or inciting event. [facility] Medical History (Updated 01/25/23 @ 11:58 by Chari Benoit MD) COVID-19 virus infection Genital herpes Type 2 diabetes mellitus with hyperglycemia Insomnia Hypercholesterolemia BPH (benign prostatic hyperplasia) Degenerative disc disease, lumbar Obesity (BMI 30-39.9) Vitamin D deficiency Mitral regurgitation Hypertrophic cardiomyopathy Surgical History History of testicular surgery Family History Father Acute CVA (cerebrovascular accident) Stroke Mother Hypertension Alzheimers disease Sister Stomach cancer Family/Other Prostate cancer Leukemia Social History Housing: House Alcohol intake: never Patient Tobacco Use Status: Former Tobacco user Tobacco use type: Cigarette Years Smoked: 1989 e-Cigarette/Vaping Use: Never Used Second Hand Smoke Exposure: No service: No Current occupational status: employed Cognitive needs: No Hearing needs: No Vision needs: Yes (Glasses) Questionnaire Thrive Questionnaire Date Thrive assessed: 07/03/23 ALISON-7 AMB Questionnaire ALISON-7 Date ALISON - 7 assessed: 07/03/23 Source: Developed by Drs. Shai Duarte, Yanely Jeffrey, Wing Moreira and colleagues, with an educational michael from [employer]. Review of Systems Const Denies body aches, Denies chills and Denies fever(s) Eyes Reports no additional complaints ENT Reports no additional complaints Card Denies chest pain and Denies dyspnea Resp Denies dyspnea GI Reports no additional complaints Reports no additional complaints Musc Details: left great toe pain Skin/Breast Reports system reviewed and no additional complaints, except as documented Physical exam (Primary Care) Vital Signs: Oxygen Delivery Method Room Air 03/12/24 08:00 Tobacco/Smoking Status: Tobacco use Status Tobacco use date assessed 07/03/23 10/12/23 09:24 Patient Tobacco Use Status Former Tobacco user 10/12/23 09:24 Tobacco use type Cigarette 10/12/23 09:24 e-Cigarette/Vaping Use Never Used 10/12/23 09:24 Thrive Assessment: Date of Thrive Assessment Date Thrive assessed 07/03/23 10/12/23 09:24 Const General: cooperative, healthy appearing, comfortable and no acute distress Orientation/consciousness: patient oriented x3 HENMT Head: Yes normocephalic Ears: hearing grossly normal bilaterally General nose exam: Normal external nose present Eyes General: appearance normal, both eyes and all related structures Conjunctivae: conjunctivae normal Neck Neck: Yes full ROM and Yes no lymphadenopathy Resp Effort & Inspection: normal respiratory effort Auscultation: clear to auscultation bilaterally, no crackles, no rales, no rhonchi and no wheezes Cardio Rate: regular rate Rhythm: regular rhythm Skin General skin exam: no rashes or lesions noted Neuro General: patient oriented x3 Gait exam (Neuro): Normal gait present Extrem Other: Tenderness to palpation and swelling of left MTP without overlying erythema or warmth. Strength, sensation, pulses intact in bilateral lower extremities General: Yes normal to inspection, Yes full ROM and No edema Psych Affect: normal affect Attitude: cooperative Insight: Good insight present (Psych) Judgement: Good judgement present (Psych) Coding Level of Care Code Est Pt Level 4 (87105) Diagnoses Gout M10.9 Type 2 diabetes mellitus with hyperglycemia, without long-term current use of insulin E11.65 Diabetes mellitus salvage determiner insulin use: without salvage determiner use Hypercholesterolemia E78.00 Obesity (BMI 30-39.9) E66.9 Assessment & Plan Assessment & Plan (1) Gout: Code(s): M10.9 - Gout, unspecified Category: Medical Plan: Presentation most consistent with acute gout attack. Ordered for uric acid levels. We will start patient on colchicine advised patient to take 2 tablets of colchicine on day 1 followed by 1 tablet daily until attack resolves. If symptoms do not improve or if they worsen in please reach out to the office. (2) Type 2 diabetes mellitus with hyperglycemia: Comment: [facility] Code(s): E11.65 - Type 2 diabetes mellitus with hyperglycemia Category: Medical Qualifiers: Diabetes mellitus salvage determiner insulin use: without salvage determiner use Qualified Code(s): E11.65 - Type 2 diabetes mellitus with hyperglycemia Plan: Decrease the amount of carbohydrates such as pasta, bread, rice, and potatoes and limit the amount of sweets. Although fruits are generally healthy they should be eaten in moderation as they are still high in sugar. Hemoglobin A1c goal of less than 7%. A1c 6.7% on last blood work. Has follow up in March for repeat A1c. (3) Hypercholesterolemia: Code(s): E78.00 - Pure hypercholesterolemia, unspecified Category: Medical Plan: Avoid foods that are high in cholesterol such as red meat, fried foods, eggs and baked goods. Triglyceride goal of less than 150 and LDL goal of less than 100. (4) Obesity (BMI 30-39.9): Code(s): E66.9 - Obesity, unspecified Category: Medical Plan: Healthy diet and regular exercise is encouraged. Plan This note was constructed using voice recognition software. While every effort has been made to ensure accuracy and supervisor sewing room, still areas may have been included sometimes these areas may affect the content or meeting of the given symptoms. Total time spent caring for the patient today was 30 minutes. This includes time spent before the visit reviewing the chart, time spent during the visit, and time spent after the visit and documentation. Orders: Orders Uric Acid Today M10.9 - Gout, unspecified Medications: New 2 colchicine take two capsules on day one and once daily thereafter 0.6 mg PO DAILY 8 caps 0RF colchicine take two capsules on day one and once daily thereafter 0.6 mg PO DAILY 11 caps 0RF
[2024-03-12 08:00] VITALS: BP 124/70; PULSE 72; O2SAT 98; BMI 33.9
== END 2024-03-12 08:47 | disposition home or self-care (01) ==
PROVIDERS: PCP Internal Medicine
DX: M10.9 Gout, unspecified (principal); E11.65 Type 2 diabetes mellitus with hyperglycemia; E66.9 Obesity, unspecified; Z68.33 Body mass index [BMI] 33.0-33.9, adult; E78.00 Pure hypercholesterolemia, unspecified

== ENCOUNTER → 2024-03-12 07:51 | Outpatient (BNVA) | payer BC, SELFPAY | PROVIDERS: PCP Internal Medicine ==

== ENCOUNTER 2024-03-12 08:37 | Outpatient (REF) | payer BC, SELFPAY ==
[2024-03-12 10:18] LABS: Uric Acid 4.2 mg/dL (3.4-7.0)
== END 2024-03-12 08:38 | disposition home or self-care (01) ==
LOC: HO.LAB 08:37
PROVIDERS: PCP Internal Medicine
DX: M10.9 Gout, unspecified (principal); E11.65 Type 2 diabetes mellitus with hyperglycemia; E78.00 Pure hypercholesterolemia, unspecified; E66.9 Obesity, unspecified
CPT/HCPCS: 36415; 84550

== ENCOUNTER 2024-04-05 13:17 | Outpatient (AMB) | payer BC, SELFPAY ==
--- NOTE | 2024-04-05 14:03 | AM.OFFWIN_ITS ---
Intake Vital Signs 04/05/24 14:16 Weight 224 lb BP 126/84 Blood Pressure Location Rt brachial Position Sitting Pulse 66 Pulse Source Pulse Oximeter Temp 98.2 F Temp Source Oral Pulse Oximetry (%) 98 Oxygen Delivery Method Room Air Intake Visit Reasons: EP sore throat Intake Note: Patient here for sore throat, cough and congestion that started last week and worsening. Patient Tobacco Use Status: Former Tobacco user Allergies metformin Adverse Reaction (Intermediate, Verified 04/05/24 14:17) Diarrhea Do you need a note to return to daycare/school/sports/work: No HPI HPI Comments History of Present Illness Details This is a 68-year-old male who presented to the walk-in clinic complaining of viral URI symptoms. Patient states that his symptoms started as a sore throat about 1 week ago. He states that his sore throat worsened over the next several days; however, his sore throat then improved/resolved. He states that he then started to develop nasal/sinus congestion/pain, rhinorrhea, and sore throat again associated with chest congestion and a productive cough. He reports having a fever/chills last night. He reports a lot of mucus/sputum production with yellow-green nasal discharge and yellow-green sputum from his cough. [facility] Medical History (Updated 01/25/23 @ 11:58 by Chari Benoit MD) COVID-19 virus infection Genital herpes Type 2 diabetes mellitus with hyperglycemia Insomnia Hypercholesterolemia BPH (benign prostatic hyperplasia) Degenerative disc disease, lumbar Obesity (BMI 30-39.9) Vitamin D deficiency Mitral regurgitation Hypertrophic cardiomyopathy Surgical History History of testicular surgery Family History Father Acute CVA (cerebrovascular accident) Stroke Mother Hypertension Alzheimers disease Sister Stomach cancer Family/Other Prostate cancer Leukemia Social History Housing: House Alcohol intake: never Patient Tobacco Use Status: Former Tobacco user Tobacco use type: Cigarette Years Smoked: quit 1989 e-Cigarette/Vaping Use: Never Used Second Hand Smoke Exposure: No service: No Current occupational status: employed Cognitive needs: No Hearing needs: No Vision needs: Yes (Glasses) Review of Systems Const All systems reviewed & are unremarkable except as noted in HPI and below Reports no additional complaints Eyes Reports no additional complaints ENT Reports no additional complaints Card Reports no additional complaints Resp Reports no additional complaints GI Reports no additional complaints Reports no additional complaints Musc Reports no additional complaints Skin/Breast Reports system reviewed and no additional complaints, except as documented Neuro Reports no additional complaints Psych Reports no additional complaints Endo Reports no additional complaints Devon/Lymph Reports no additional complaints Aller/Immun Reports no additional complaints Physical Exam Vital Signs: Last Vital Signs Temp 98.2 F 04/05/24 14:16 Pulse 66 04/05/24 14:16 BP 126/84 04/05/24 14:16 Pulse Ox 98 04/05/24 14:16 Oxygen Delivery Method Room Air 04/05/24 14:16 Const Other: Vital signs reviewed. Constitutional: Non-toxic appearing. No acute distress. Well-developed and well-nourished. HEENT: Normocephalic and atraumatic. Tympanic membranes without erythema, edema, or bulging bilaterally. External auditory canals without erythema or edema bilaterally. Moist mucous membranes. Mild posterior pharyngeal erythema. Skin: Warm and dry. No rashes or lesions noted. Neck: Full and painless range of motion. No cervical lymphadenopathy. Cardio: Regular rate and rhythm. No murmurs, gallops, or rubs. No lower extremity edema. No JVD. Pulmonary: No respiratory distress. No accessory muscle usage. Clear to auscultation bilaterally without wheezing, crackles, or rhonchi. Gastrointestinal: Soft, nontender, and nondistended in all 4 quadrants. Musculoskeletal: Normal range of motion in joints throughout the body. No deformity or other signs of injury. Neuro: Alert and oriented x4. Cranial nerves 2-12 grossly intact. No focal deficits appreciated. Psych: Normal mood and affect. Assessment & Plan Assessment & Plan (1) Acute upper respiratory infection, unspecified: Code(s): J06.9 - Acute upper respiratory infection, unspecified Plan: This is a 68-year-old male who presented to the walk-in clinic complaining of viral URI symptoms. History and physical most consistent with a viral upper respiratory tract infection; however, bacterial infection such as atypical pneumonia also considered given double worsening of patient's symptoms. Patient given a prescription for p.o. azithromycin 500 mg today followed by 250 mg daily x4 days. Recommended symptomatic management including rest, increased fluids, advil/tylenol for pain/fever, over the counter throat lozenges/decongestants. Patient advised to follow up here or go to the emergency room for worsening/persistent symptoms. Patient verbalized understanding and is agreeable with the plan. Orders: Orders SARS-CoV2/FLU/RSV Today J06.9 - Acute upper respiratory infection, unspecified Medications: New azithromycin For 250 mg dose pack: take 500 mg today (day 1), then 250 mg for 4 days (days 2-5) PO 6 tabs 0RF Coding Level of Care Code Est Pt Level 3 (36235) Diagnoses Acute upper respiratory infection, unspecified J06.9
[2024-04-05 14:16] VITALS: BP 126/84; PULSE 66; TEMP 36.8; O2SAT 98
== END 2024-04-05 14:41 | disposition home or self-care (01) ==
PROVIDERS: PCP Internal Medicine; Visit Provider Physician Assistant Medical
DX: J06.9 Acute upper respiratory infection, unspecified (principal)

== ENCOUNTER → 2024-04-05 13:17 | Outpatient (BNVA) | payer BC, SELFPAY | PROVIDERS: PCP Internal Medicine; Visit Provider Physician Assistant Medical ==

== ENCOUNTER 2024-04-05 16:00 | Outpatient (REF) | payer BC, SELFPAY ==
[2024-04-05 16:59] LABS: Influenza A PCR NEGATIVE (Negative); Influenza B PCR NEGATIVE (Negative); Resp Syncy Virus RNA Qual PCR NEGATIVE (Negative); SARS COV2 PCR INHOUSE NEGATIVE (Negative)
== END 2024-04-05 16:01 | disposition home or self-care (01) ==
LOC: HO.LNP 16:00
PROVIDERS: Visit Provider Physician Assistant Medical
DX: J06.9 Acute upper respiratory infection, unspecified (principal)
CPT/HCPCS: 0241U

== ENCOUNTER 2024-04-15 08:12 | Outpatient (AMB) | payer BC, SELFPAY ==
[2024-04-15 08:19] VITALS: BP 130/64; PULSE 70; O2SAT 97; BMI 33.5
--- NOTE | 2024-04-15 08:19 | A.OFFPC_ITS ---
Vital Signs 04/15/24 08:19 Height 5 ft 8 in Weight 220 lb 2 oz BMI 33.5 BP 130/64 Blood Pressure Location Lt brachial Position Sitting Pulse 70 Pulse Source Pulse Oximeter Pulse Oximetry (%) 97 Oxygen Delivery Method Room Air Intake Visit Reasons: DM Intake Note: Patient is here to follow up on DM. [employer] Required: No Systems Administrator: Not Required per policy Accompanied by: Self / Same As Patient Allergies metformin Adverse Reaction (Intermediate, Verified 04/15/24 08:19) Diarrhea Medication List - Last Reconciled 04/15/24 by Laya Sin PA-C atorvastatin 40 mg PO DAILY 90 days blood sugar diagnostic (FreeStyle Test strips) As directed check BS QD clotrimazole 1% 1 appl topical BID 4 weeks colchicine 0.6 mg PO DAILY fexofenadine (Tracy Allergy) 180 mg PO DAILY lancets (FreeStyle Lancets) As directed check BS QD lisinopril 10 mg PO DAILY 90 days nabumetone 750 mg PO BID sitagliptin phosphate (Januvia) 100 mg PO DAILY 90 days tamsulosin 0.4 mg PO DAILY zolpidem (Ambien) 10 mg PO BEDTIME PRN Tobacco use date assessed: 04/15/24 Fall risk assessment: No Falls in past year Last assessed Fall Risk: 04/15/24 Dental Screening Dental Screen Date: 07/03/23 HPI DM HPI Details 68-year-old male with past medical histo ry of diabetes mellitus, hypercholesterolemia, hypertension last seen March 2024 coming in for follow up on diabetes. Patient tells us today he has been dealing with some family stress but feels like he is managing well. He has been working on his diet but finds it hard to exercise due to chronic back pain. [facility] Medical History COVID-19 virus infection Genital herpes Type 2 diabetes mellitus with hyperglycemia Insomnia Hypercholesterolemia BPH (benign prostatic hyperplasia) Degenerative disc disease, lumbar Obesity (BMI 30-39.9) Vitamin D deficiency Mitral regurgitation Hypertrophic cardiomyopathy Surgical History History of testicular surgery Family History Father Acute CVA (cerebrovascular accident) Stroke Mother Hypertension Alzheimers disease Sister Stomach cancer Family/Other Prostate cancer Leukemia Social History Housing: House Alcohol intake: never Patient Tobacco Use Status: Former Tobacco user Tobacco use type: Cigarette Years Smoked: quit 1989 e-Cigarette/Vaping Use: Never Used Second Hand Smoke Exposure: No service: No Current occupational status: employed Cognitive needs: No Hearing needs: No Vision needs: Yes (Glasses) Questionnaire Thrive Questionnaire Date Thrive assessed: 07/03/23 ALISON-7 AMB Questionnaire ALISON-7 Date ALISON - 7 assessed: 07/03/23 Source: Developed by Drs. Shai Duarte, Yanely Jeffrey, Wing Moreira and colleagues, with an educational michael from [employer]. Review of Systems Const Denies body aches, Denies chills, Denies fever(s), Denies headache(s) and Denies poor appetite Eyes Reports no additional complaints ENT Denies dizziness and Denies headache(s) Card Denies chest pain, Denies edema, Denies lightheadedness and Denies dyspnea Resp Denies cough and Denies dyspnea GI Denies abdominal pain, Denies constipation, Denies diarrhea, Denies nausea and Denies vomiting Reports no additional complaints Musc Reports no additional complaints, Denies abnormal gait and Reports back pain Skin/Breast Reports system reviewed and no additional complaints, except as documented Neuro Denies abnormal gait, Denies dizziness and Denies headache(s) Psych Reports no additional complaints Physical exam (Primary Care) BMI result Body Mass Index 33.5 Tobacco/Smoking Status: Tobacco use Status Tobacco use date assessed 07/03/23 03/12/24 08:00 Patient Tobacco Use Status Former Tobacco user 04/05/24 14:04 Tobacco use type Cigarette 03/12/24 08:00 e-Cigarette/Vaping Use Never Used 03/12/24 08:00 Thrive Assessment: Date of Thrive Assessment Date Thrive assessed 07/03/23 03/12/24 08:00 Const General: cooperative, healthy appearing, comfortable and no acute distress Orientation/consciousness: patient oriented x3 HENMT Head: Yes normocephalic Ears: hearing grossly normal bilaterally General nose exam: Normal external nose present Eyes General: appearance normal, both eyes and all related structures Conjunctivae: conjunctivae normal Neck Neck: Yes full ROM and Yes no lymphadenopathy Resp Effort & Inspection: normal respiratory effort Auscultation: clear to auscultation bilaterally, no crackles, no rales, no rhonchi and no wheezes Cardio Rate: regular rate Rhythm: regular rhythm Skin General skin exam: no rashes or lesions noted Neuro General: patient oriented x3 Gait exam (Neuro): Normal gait present Extrem General: Yes normal to inspection, Yes full ROM and No edema Psych Affect: normal affect Attitude: cooperative Insight: Good insight present (Psych) Judgement: Good judgement present (Psych) Results AMB Hemoglobin A1c AMB Hemoglobin A1c 6.5 % Last Edit by RADHA Figueredo on 04/15/24 08:31 Coding Level of Care Code Est Pt Level 3 (80441) Diagnoses Obesity (BMI 30-39.9) E66.9 Hypercholesterolemia E78.00 Type 2 diabetes mellitus with hyperglycemia, without long-term current use of insulin E11.65 Diabetes mellitus supervisor twisting department insulin use: without supervisor twisting department use Essential hypertension I10 Assessment & Plan Assessment & Plan (1) Obesity (BMI 30-39.9): Code(s): E66.9 - Obesity, unspecified Category: Medical Plan: Healthy diet and regular exercise is encouraged. (2) Hypercholesterolemia: Code(s): E78.00 - Pure hypercholesterolemia, unspecified Category: Medical Plan: Avoid foods that are high in cholesterol such as red meat, fried foods, eggs and baked goods. Triglyceride goal of less than 150 and LDL goal of less than 100. Continue on atorvastatin 40 mg. Ordered for updated blood work. (3) Type 2 diabetes mellitus with hyperglycemia: Comment: [facility] Code(s): E11.65 - Type 2 diabetes mellitus with hyperglycemia Category: Medical Qualifiers: Diabetes mellitus supervisor twisting department insulin use: without supervisor twisting department use Qualified Code(s): E11.65 - Type 2 diabetes mellitus with hyperglycemia Plan: Decrease the amount of carbohydrates such as pasta, bread, rice, and potatoes and limit the amount of sweets. Although fruits are generally healthy they should be eaten in moderation as they are still high in sugar. Hemoglobin A1c goal of less than 7%. Presently on Januvia. A1c 6.5% today continue on current medication and follow up in 3 months. (4) Essential hypertension: Code(s): I10 - Essential (primary) hypertension Category: Medical Plan: Continue on current blood pressure medication. Avoid salt intake and encourage healthy diet and regular exercise. Blood pressure at goal today. Plan This note was constructed using voice recognition software. While every effort has been made to ensure accuracy and solar thermal installer, still areas may have been i ncluded sometimes these areas may affect the content or meeting of the given symptoms. Total time spent caring for the patient today was 20 minutes. This includes time spent before the visit reviewing the chart, time spent during the visit, and time spent after the visit and documentation. Orders: Orders Lipid Panel Today E78.00 - Pure hypercholesterolemia, unspecified Complete Blood Count Auto Diff Today E11.65 - Type 2 diabetes mellitus with hyperglycemia, Z00.00 - Encounter for general adult medical examination without abnormal findings Microalbumin, Random (w Creat) Today E11.65 - Type 2 diabetes mellitus with hyperglycemia, E11.9 - Type 2 diabetes mellitus without complications PSA, Ultra Sensitive Today E11.65 - Type 2 diabetes mellitus with hyperglycemia, Z00.00 - Encounter for general adult medical examination without abnormal findings ABO RH Type Today E11.65 - Type 2 diabetes mellitus with hyperglycemia, Z00.00 - Encounter for general adult medical examination without abnormal findings AMB Hemoglobin A1c Today E11.65 - Type 2 diabetes mellitus with hyperglycemia Comprehensive Met. Panel Today E11.65 - Type 2 diabetes mellitus with hyperglycemia, Z00.00 - Encounter for general adult medical examination without abnormal findings TSH reflex Free T4 Today E11.65 - Type 2 diabetes mellitus with hyperglycemia, Z00.00 - Encounter for general adult medical examination without abnormal findings Vitamin B12 and Folate Today E11.65 - Type 2 diabetes mellitus with hyperglycemia, Z00.00 - Encounter for general adult medical examination without abnormal findings Vitamin D 25-OH Total Today E11.65 - Type 2 diabetes mellitus with hyperglycemia, Z00.00 - Encounter for general adult medical examination without abnormal findings Free T4 (Free Thyroxine) Today E11.65 - Type 2 diabetes mellitus with hyperglycemia, Z00.00 - Encounter for general adult medical examination without abnormal findings
== END 2024-04-15 08:47 | disposition home or self-care (01) ==
PROVIDERS: PCP Internal Medicine
DX: E11.65 Type 2 diabetes mellitus with hyperglycemia (principal); E66.9 Obesity, unspecified; E78.00 Pure hypercholesterolemia, unspecified; I10 Essential (primary) hypertension; Z68.33 Body mass index [BMI] 33.0-33.9, adult

== ENCOUNTER → 2024-04-15 08:12 | Outpatient (BNVA) | payer BC, SELFPAY | PROVIDERS: PCP Internal Medicine | DX: E11.65 Type 2 diabetes mellitus with hyperglycemia (principal); E78.00 Pure hypercholesterolemia, unspecified; I10 Essential (primary) hypertension; E66.9 Obesity, unspecified; Z68.33 Body mass index [BMI] 33.0-33.9, adult | CPT/HCPCS: 83036 ==

== ENCOUNTER 2024-07-03 08:17 | Outpatient (REF) | payer BC, SELFPAY ==
[2024-07-03 08:53] LABS: MANUAL DIFF FLAG NO
[2024-07-03 09:57] LABS: Basophils Absolute Auto 0.1 X10*3/uL (0.0-0.2); Basophils Percent Auto 0.8 % (0-2); Eosinophils Absolute Auto 0.2 X10*3/uL (0.0-0.4); Eosinophils Percent Auto 3.1 % (0-4); Hematocrit 44.9 % (42.0-52.0); Hemoglobin 14.6 g/dl (14.0-18.0); Imm Gran Abs Auto 0.01 X10*3/uL (0.00-0.03); Imm Gran Pct Auto 0.1 % (0.0-0.4); Lymphocytes Absolute Auto 1.7 X10*3/uL (1.2-4.9); Lymphocytes Percent Auto 23.1 % (20-40); Mean Corpuscular HGB Conc 32.5 g/dl (31.0-36.0); Mean Corpuscular Hemoglobin 27.2 pg (27.0-33.0); Mean Corpuscular Volume 83.8 fL (80.0-98.0); Mean Platelet Volume 10.7 fL (9.4-12.4); Monocytes Absolute Auto 0.7 X10*3/uL (0.1-1.2); Monocytes Percent Auto 10.3 % (2-11); Neutrophils Absolute Auto 4.5 x10*3/uL (2.0-8.3); Neutrophils Percent Auto 62.6 % (45-73); Platelet Count 243 X10*3/uL (160-400); Red Blood Count 5.36 X10*6/uL (4.60-5.80); Red Cell Distribution Width 13.7 % (11.0-16.0); White Blood Count 7.2 X10*3/uL (4.8-10.8)
[2024-07-03 10:39] LABS: Alanine Aminotransferase 24 U/L (0-40); Albumin Level 4.1 g/dL (3.5-5.0); Alkaline Phosphatase 50 U/L (39-117); Anion Gap 12 (12-20); Aspartate Amino Transferase 21 U/L (5-37); Bilirubin Total 0.9 mg/dL (0.0-1.0); Blood Urea Nitrogen 17 mg/dL (9-16); Calcium 9.1 mg/dL (8.4-10.2); Carbon Dioxide 26 mmol/L (22-29); Chloride 106 mmol/L (96-108); Cholesterol 134 mg/dL (<200); Estimated Glomerular Filt Rate > 60; Glucose Random 106 mg/dL (60-115); HDL Cholesterol 41 mg/dL (>40); LDL Cholesterol Calculated 81 mg/dL (<100); Potassium 4.1 mmol/L (3.3-5.1); Sodium 140 mmol/L (135-145); Total Protein 7.3 g/dL (6.5-8.0); Triglycerides 64 mg/dL (<150)
[2024-07-03 10:50] LABS: Free T4 (Free Thyroxine) 0.79 ng/dL (0.71-1.85); TSH reflex Free T4 0.89 uIU/mL (0.32-4.0); Vitamin D 25-OH Total 25.7 ng/mL (>30)
[2024-07-03 10:56] LABS: Folate 12.2 ng/mL (> or = 4.0); Vitamin B12 478 pg/mL (200-900)
[2024-07-03 11:07] LABS: Creatinine Urine 120.86 mg/dL; Microalbum/Creatinine Ratio Ur 8.2 ug/mg cr (<30)
[2024-07-07 16:58] LABS: PSA, Ultra Sensitive 0.36 ng/mL
== END 2024-07-03 08:18 | disposition home or self-care (01) ==
LOC: HO.LAB 08:17
PROVIDERS: PCP Internal Medicine
DX: Z00.00 Encounter for general adult medical examination without abnormal findings (principal); E11.65 Type 2 diabetes mellitus with hyperglycemia; E78.00 Pure hypercholesterolemia, unspecified; E11.9 Type 2 diabetes mellitus without complications; Z12.5 Encounter for screening for malignant neoplasm of prostate
CPT/HCPCS: 36415; 80053; 80061; 82043; 82306; 82570; 82607; 82746; 84153; 84439; 84443; 85025; 86900; 86901

== ENCOUNTER 2024-07-09 08:47 | Outpatient (AMB) | payer BC, SELFPAY ==
--- NOTE | 2024-07-09 08:49 | MHC.PC.OV ---
Vital Signs 07/09/24 08:50 Height 5 ft 8 in Weight 220 lb BMI 33.4 BP 130/70 Blood Pressure Location Lt brachial Position Sitting Pulse 67 Pulse Source Pulse Oximeter Pulse Oximetry (%) 97 Oxygen Delivery Method Room Air Intake Visit Reasons: annual exam Research Spec Required: No Accompanied by: Self / Same As Patient Allergies metformin Adverse Reaction (Intermediate, Verified 07/09/24 08:50) Diarrhea Medication List - Last Reconciled 07/09/24 by Chari Benoit MD atorvastatin 40 mg PO DAILY 90 days blood sugar diagnostic (FreeStyle Test strips) As directed check BS QD clotrimazole 1% 1 appl topical BID 4 weeks colchicine 0.6 mg PO DAILY fexofenadine (Tracy Allergy) 180 mg PO DAILY lancets (FreeStyle Lancets) As directed check BS QD lisinopril 10 mg PO DAILY 90 days nabumetone 750 mg PO BID sitagliptin phosphate (Januvia) 100 mg PO DAILY 90 days tamsulosin 0.4 mg PO DAILY zolpidem (Ambien) 10 mg PO BEDTIME PRN Tobacco use date assessed: 07/09/24 Fall risk assessment: No Falls in past year Last assessed Fall Risk: 07/09/24 Dental Screening Dental Screen Date: 07/09/24 Did you have a dental visit in the last 12 months?: Yes Did you have a dental problem in the last 6 months where you did not have access to dental care?: No Was dental information given to patient?: Patient has dentist [facility] Medical History COVID-19 virus infection Genital herpes Type 2 diabetes mellitus with hyperglycemia Insomnia Hypercholesterolemia BPH (benign prostatic hyperplasia) Degenerative disc disease, lumbar Obesity (BMI 30-39.9) Vitamin D deficiency Mitral regurgitation Hypertrophic cardiomyopathy Surgical History History of testicular surgery Family History Father Acute CVA (cerebrovascular accident) Stroke Mother Hypertension Alzheimers disease Sister Stomach cancer Family/Other Prostate cancer Leukemia Social History Housing: House Alcohol intake: never Patient Tobacco Use Status: Former Tobacco user Tobacco use type: Cigarette Years Smoked: quit 1989 e-Cigarette/Vaping Use: Never Used Second Hand Smoke Exposure: No service: No Current occupational status: employed Cognitive needs: No Hearing needs: No Vision needs: Yes (Glasses) Questionnaire PHQ-9 Over the last 2 weeks, how often have you been bothered by any of the following problems? 1. Little interest or pleasure in doing things: not at all 2. Feeling down, depressed, or hopeless: not at all 3. Trouble falling or staying asleep, or sleeping too much: several days 4. Feeling tired or having little energy: several days 5. Poor appetite or overeating: not at all 6. Feeling bad about yourself - or that you are a failure or have let yourself or your family down: not at all 7. Trouble concentrating on things, such as reading the newspaper or watching television: not at all 8. Moving or speaking so slowly that other people could have noticed. Or the opposite - being so fidgety or restless that you have been moving around a lot more than usual: several days 9. Thoughts that you would be better off or of hurting yourself in some way: not at all Total score: 3 Source: Developed by Drs. Shai Duarte, Yanely Jeffrey, Wing Moreira and colleagues, with an educational michael from [email or web address]. Thrive Questionnaire Date Thrive assessed: 07/09/24 I am a: Patient What is your living situation today?: I have a steady place to live Within the past 12 months, did the food you bought not last and you didn't have the money to get more?: Sometimes True Within the past 12 months, did you worry whether your food would run out before you got money to buy more?: I choose not to answer this question Do you have trouble paying for medicines?: No Do you have trouble getting transportation to medical appointments?: No Do you have trouble paying your heating and electricity bill?: Yes Do you have trouble taking care of your child, family member or friend?: No Do you have trouble with day-to-day activities such as bathing, preparing meals, shopping, managing finances, etc.?: No Are you currently unemployed and looking for a job?: No Are you interested in more education?: No Please select the resources that you would like help with: None Currently or been in a relationship where the following occur: I choose not to answer THRIVE Score: 2 AUDIT C Alcohol Use Questionnaire (AUDIT-C) 1. How often do you have a drink containing alcohol?: Never 3. How often do you have six or more drinks on one occasion?: Never Total Score: 0 ALISON-7 AMB Questionnaire ALISON-7 Date ALISON - 7 assessed: 07/09/24 Feeling nervous, anxious, or on edge: 0 = Not at all Not being able to stop or control worryin = Not at all Worrying too much about different things: 1 = Several days Trouble relaxin = Several days Being so restless that it is hard to sit still: 0 = Not at all Becoming easily annoyed or irritable: 0 = Not at all Feeling afraid as if something awful might happen: 0 = Not at all Total ALISON-7 score (0-4 normal; 5-9 mild; 10-14 moderate; 15-21 severe): 2 Source: Developed by Drs. Shai Duarte, Yanely Jeffrey, Wing Moreira and colleagues, with an educational michael from [email or web address]. Review of Systems Const Denies poor appetite and Denies weakness Eyes Denies no additional complaints ENT Reports Normal hearing present, Denies dizziness, Denies nasal congestion, Denies tinnitus and Denies sore throat Card Denies chest pain, Denies syncope, Denies rapid heart rate and Denies dyspnea Resp Denies cough and Denies dyspnea GI Denies change in stool character, Reports constipation, Denies diarrhea, Denies nausea and Denies vomiting Denies dysuria and Denies urinary frequency Neuro Reports Normal hearing present, Denies confusion, Denies dizziness, Denies syncope and Denies weakness Psych Denies confusion Physical exam (Primary Care) Vital Signs: Last Vital Signs Pulse 67 07/09/24 08:50 BP 130/70 07/09/24 08:50 Pulse Ox 97 07/09/24 08:50 Oxygen Delivery Method Room Air 07/09/24 08:50 BMI result Body Mass Index 33.4 Tobacco/Smoking Status: Tobacco use Status Tobacco use date assessed 07/09/24 07/09/24 08:53 Patient Tobacco Use Status Former Tobacco user 07/09/24 08:53 Tobacco use type Cigarette 03/11/25 08:53 e-Cigarette/Vaping Use Never Used 07/09/24 08:53 PHQ-9: PHQ-9 Score PHQ-9: Total score 3 07/09/24 08:53 Thrive Assessment: Date of Thrive Assessment Date Thrive assessed 07/09/24 07/09/24 08:53 Currently or been in a relationship where the following occur: I choose not to answer Const General: No confusion Orientation/consciousness: No confusion HENMT Head: Yes normocephalic Ears: external ears normal and TM's normal bilaterally Face and sinus: Yes normal facial exam Mouth: moist mucous membranes Throat: Yes tonsils normal Eyes Conjunctivae: conjunctivae normal Pupils: Equal, round and reactive pupils present and Pupil accommodation reflex normal Direct Ophthalmoscopy: normal light reflex Neck Neck: No lymphadenopathy Thyroid: Thyroid normal Chest Chest palpation & inspection: normal inspection of the chest Resp Effort & Inspection: normal respiratory effort and no audible wheezes Auscultation: clear to auscultation bilaterally, no crackles, no wheezes and lung sounds not diminished Cardio Rate: regular rate Rhythm: regular rhythm Peripheral pulses: radial pulses present and dorsalis pedis present GI Other: guaic negative and prostate N, pin prick adn pedla pulse N Palpation (GI): no masses Auscultation: normal bowel sounds and normoactive bowel sounds Skin General skin exam: no rashes or lesions noted Rashes: no rashes Neuro General: No confusion Cranial nerves: Yes Equal, round and reactive pupils present and Yes Normal hearing present Cognition (Neuro): normal cognition Gait exam (Neuro): Normal gait present Motor exam (neuro): 5/5 motor strength present throughout Deep tendon reflexes (DTR's): Right brachioradialis reflex intensity grade: 2+, Left brachioradialis reflex intensity grade: 2+, Right patellar reflex intensity grade: 2+ and Left patellar reflex intensity grade: 2+ Extrem General: No edema Results AMB Hemoglobin A1c AMB Hemoglobin A1c 6.7 % Last Edit by RADHA Hamlin on 07/09/24 09:29 Coding Level of Care Code Est Pt Prev Care >65y(27506) Diagnoses Annual physical exam Z00.00 Obesity (BMI 30-39.9) E66.9 Type 2 diabetes mellitus with hyperglycemia, without long-term current use of insulin E11.65 Diabetes mellitus group home insulin use: without group home use Hypercholesterolemia E78.00 Essential hypertension I10 Hypertrophic cardiomyopathy I42.2 Gout M10.9 Benign prostatic hyperplasia with urinary frequency N40.1; R35.0 Lower urinary tract symptom presence: symptoms present Lower urinary tract symptom detail: urinary frequency Degenerative disc disease, lumbar M51.36 Hypersomnia G47.10 Assessment & Plan Assessment & Plan (1) Annual physical exam: Code(s): Z00.00 - Encounter for general adult medical examination without abnormal findings Category: Medical Plan: Patient is advised to eat healthy, keep well hydrated, keep active and have adequate sleep. (2) Obesity (BMI 30-39.9): Code(s): E66.9 - Obesity, unspecified Category: Medical Plan: Diet and exercise (3) Type 2 diabetes mellitus with hyperglycemia: Comment: [facility] Code(s): E11.65 - Type 2 diabetes mellitus with hyperglycemia Category: Medical Qualifiers: Diabetes mellitus supervisor long goods insulin use: without supervisor long goods use Qualified Code(s): E11.65 - Type 2 diabetes mellitus with hyperglycemia Plan: Decrease the amount of carbohydrate intake, pasta, bread, rice and potatoes are all sugar and that is aside from all the sweet stuff, remember that fruits are good but they are Sweet also. Hemoglobin A1c goal of less than 6.5 on Januvia right now (4) Hypercholesterolemia: Code(s): E78.00 - Pure hypercholesterolemia, unspecified Category: Medical Plan: Avoid fried foods, chicken skin, eggs, butter margarine, pastries and meat. Be it pork or beef they have a lot of cholesterol LDL goal of less than 100 and triglyceride of less than 150 on atorvastatin (5) Essential hypertension: Code(s): I10 - Essential (primary) hypertension Category: Medical Plan: Continue with blood pressure medication. Decrease salt intake and exercise lisinopril 10 mg once a day (6) Hypertrophic cardiomyopathy: Comment: June 2018 stress negative Code(s): I42.2 - Other hypertrophic cardiomyopathy Category: Medical Plan: Continue to follow up with Cardiology Control the cholesterol, weight, blood pressure, diabetes (7) Gout: Code(s): M10.9 - Gout, unspecified Category: Medical Plan: Low purine diet and keep well hydrated (8) BPH (benign prostatic hyperplasia): Code(s): N40.0 - Benign prostatic hyperplasia without lower urinary tract symptoms Category: Medical Qualifiers: Lower urinary tract symptom presence: symptoms present Lower urinary tract symptom detail: urinary frequency Qualified Code(s): N40.1 - Benign prostatic hyperplasia with lower urinary tract symptoms; R35.0 - Frequency of micturition Plan: On tamsulosin (9) Degenerative disc disease, lumbar: Code(s): M51.36 - Other intervertebral disc degeneration, lumbar region Category: Medical Plan: Keep active and lose the weight (10) Hypersomnia: Code(s): G47.10 - Hypersomnia, unspecified Category: Medical Plan History of Present Illness The patient is a 68-year-old male presenting for an annual physical examination with a background in multiple chronic conditions, including obesity, BPH, diabetes mellitus, hypercholesterolemia, essential hypertension, and hypertrophic cardiomyopathy. He reports a history of low heart rate, sometimes dropping to 44 bpm, but noted feeling better afterward without current medication influencing heart rate. Past experiences with slow heart rate interventions were non-essential unless symptomatic. Gout management includes lifestyle modifications, colchicine, and hydration. He reports no new symptoms or conditions since the last visit. Diagnostic lab results from June suggested normal blood count and chemistry, with cholesterol within managed targets. Reports of interrupted breathing during sleep prompted consideration for a sleep study. The patient's last colonoscopy was in 2019. Additional self-reported symptoms include occasional constipation with otherwise normal gastrointestinal functions. Health Maintenance - Vaccinations: Up to date with COVID-19 and influenza vaccines. - Cardiovascular risk management: Cholesterol LDL goal below 100, current 81; essential hypertension with lisinopril management. - Diabetes management plan: Blood glucose levels under control, A1c goal adjusted to below 7 given age; current A1c at 6.7. - Diet and exercise: Advised for weight management and cardiovascular health. - Previous colonoscopy completed in 2019. - Vitamin D: Slightly low, at 25, with target level around 30. - Planned sleep study: Evaluated at home for suspected sleep apnea. Social History - Employment: Works night shifts. - Family status: with children; involved in familial concerns over son?s health. - Substance use: Does not consume alcohol or tobacco. - Exercise: Attempts to stay active, encourage weight and chronic condition management. - Nutrition: Advised increased intake of fiber and hydration. Review of Systems - Cardiovascular: Denies chest pain, reports occasional low heart rate. - Respiratory: Reports stopping breathing during sleep. - Gastrointestinal: Reports occasional constipation; denies nausea, vomiting. - Neurological: Denies dizziness except during low heart rate episodes. - Musculoskeletal: No muscular or joint pains reported outside gout management. - Sleep: Reports snoring, occasional fatigue, concerns suggestive of sleep apnea. Physical Exam General: Cooperative, healthy appearing, comfortable, no acute distress and well developed Orientation: Patient oriented x3 Limitations: No limitations Head: Normal to inspection Ears: Hearing grossly normal bilaterally, reports occasional ringing Nose: Normal external nose present Face and sinus: Normal facial exam Eyes: Appearance normal, both eyes and all related structures Neck: Normal visual inspection and Yes full ROM Respiratory: Normal respiratory effort and able to speak in complete sentences. Clear to auscultation bilaterally Cardiovascular: Regular rate and rhythm. Normal S1 and S2. Reports episodes of low heart rate (as low as 40 bpm) with associated dizziness and headaches GI: Normal to inspection. Soft to palpation and nontender Skin: No rashes or lesions noted Neuro: Patient oriented x3 Extremities: Normal to inspection Results - Labs: Normal blood count, normal electrolytes, normal renal function, borderline high A1c, normal liver function, LDL cholesterol at 81, low vitamin D level. - Diagnostic Tests: EKG past record indicated normal sinus rhythm with slowed rate of 51 in 2020. Plan 1. Cholesterol levels, specifically LDL, remain controlled with atorvastatin therapy. Lisinopril is endorsed for hypertension management. Lifestyle interventions comprising dietary modifications and exercise are emphasized for controlling obesity and supporting gout management strategies. Vitamin D insufficiency noted on laboratory results will be addressed via lifestyle adaptation and potential supplementation to augment levels beyond the current measure of 25, with anticipated exposure increases during sunnier months. The patient will continue the use of tamsulosin for BPH, with no acute changes needed for hypertrophic cardiomyopathy observed unless symptomatic issues arise. Regular reassessment of the patient's heart rate, especially associated with any further episodes of significant bradycardia, is advised. Upcoming follow-up will include necessary laboratory assessments to maintain chronic disease management efficacy and capture any notable changes.: Patient was informed and verbally consented to the use of an ambient scribe for clinic note documentation during this visit. Discussion Notes I discussed with the patient the ongoing management of his chronic conditions including diabetes mellitus, hypercholesterolemia, and hypertension. We reviewed his current treatment regimen focusing on glycemic control, cardiovascular risk reduction, and BPH management. Given his report of suspected sleep apnea, I recommended a home-based sleep study, elaborating on its significance in evaluating sleep patterns and its potential impact on his cardiovascular function. We revisited his low heart rate episodes, decisions around monitoring versus intervention, and noted usual management until potentially symptomatic. Lifestyle adjustments for gout and weight, including dietary and hydration enhancements, were reiterated. I addressed his vitamin D insufficiency, prescribing increased natural light exposure, and potentially supplementations. We planned for ongoing follow-ups involving observational reviews of lab work, heart condition evaluations, and collaborative care timelines. I provided detailed patient instructions congruent with the established management protocols, emphasizing adherence to medications, regular follow-ups, and further noticing symptoms requiring attention. Patient Instructions - Follow the prescribed medication regimen: Continue Januvia, atorvastatin, tamsulosin, lisinopril, and colchicine/steroid as needed. - Adhere to the upcoming sleep study instructions and ensure timely completion and return. - Maintain a diet rich in fiber and hydration levels to aid gout and constipation. - Monitor vitamin D levels, increase sunlight exposure, and consider supplementation. - Contact the office if experiencing dizziness, fatigue, or significant episodes of low heart rate. - Avoid high-risk activities unless your heart rate and general symptoms stabilize, with a focus on maintaining safe cardiovascular activity levels. - Conduct regular medical follow-ups as scheduled to ensure treatment efficacy. - Stay physically active and monitor weight to assist in managing obesity. Orders: Orders AMB Hemoglobin A1c Today Z13.9 - Encounter for screening, unspecified RT home sleep study Today G47.10 - Hypersomnia, unspecified
[2024-07-09 08:50] VITALS: BP 130/70; PULSE 67; O2SAT 97; BMI 33.4
== END 2024-07-09 09:56 | disposition home or self-care (01) ==
LOC: HO.HMCH 08:48
PROVIDERS: PCP Internal Medicine; Visit Provider Internal Medicine
DX: Z00.00 Encounter for general adult medical examination without abnormal findings (principal); E11.65 Type 2 diabetes mellitus with hyperglycemia; I42.2 Other hypertrophic cardiomyopathy; E66.9 Obesity, unspecified; Z68.33 Body mass index [BMI] 33.0-33.9, adult; E78.00 Pure hypercholesterolemia, unspecified; I10 Essential (primary) hypertension; M10.9 Gout, unspecified; N40.1 Benign prostatic hyperplasia with lower urinary tract symptoms; R35.0 Frequency of micturition; M51.369 Other intervertebral disc degeneration, lumbar region without mention of lumbar back pain or lower extremity pain; G47.10 Hypersomnia, unspecified

== ENCOUNTER → 2024-07-09 08:47 | Outpatient (BNVA) | payer BC, SELFPAY | PROVIDERS: PCP Internal Medicine; Visit Provider Internal Medicine | DX: Z00.00 Encounter for general adult medical examination without abnormal findings (principal); E66.9 Obesity, unspecified; Z68.33 Body mass index [BMI] 33.0-33.9, adult; E11.65 Type 2 diabetes mellitus with hyperglycemia; E78.00 Pure hypercholesterolemia, unspecified; I10 Essential (primary) hypertension; I42.2 Other hypertrophic cardiomyopathy; M10.9 Gout, unspecified; N40.1 Benign prostatic hyperplasia with lower urinary tract symptoms; R35.0 Frequency of micturition; M51.369 Other intervertebral disc degeneration, lumbar region without mention of lumbar back pain or lower extremity pain; G47.10 Hypersomnia, unspecified; Z79.899 Other long term (current) drug therapy | CPT/HCPCS: 83036; 96127 ==

== ENCOUNTER → 2024-09-05 14:22 | Outpatient (REF) | payer BC, SELFPAY | LOC: HO.SL 14:22 | PROVIDERS: PCP Internal Medicine; Visit Provider Internal Medicine | DX: G47.10 Hypersomnia, unspecified (principal) | CPT/HCPCS: 95806 ==

== ENCOUNTER → 2024-09-05 14:31 | Outpatient (BNV) | payer BC, SELFPAY | PROVIDERS: PCP Internal Medicine; Visit Provider Internal Medicine | DX: G47.33 Obstructive sleep apnea (adult) (pediatric) (principal); G47.10 Hypersomnia, unspecified | CPT/HCPCS: 95806 ==

== ENCOUNTER 2024-09-12 07:20 | Outpatient (REF) | payer BC, SELFPAY ==
--- NOTE | ~2024-09-12 | XR_ITS ---
EXAMINATION: XR ANKLE 2 VIEWS RIGHT HISTORY: M25.571 - Pain in right ankle and joints of right foot COMPARISON: There are no prior studies available for comparison. FINDINGS: Three views of the right ankle are submitted. Osseous mineralization is normal. There is no fracture or dislocation. There is mild degenerative change of the tarsometatarsal joints. The ankle mortise is maintained. There is a small plantar calcaneal spur. There are vascular calcifications. XR/XR ankle RT 2V IMPRESSION: Mild degenerative change of the tarsometatarsal joints. Small plantar calcaneal spur. Electronically signed by: Shai Foley MD 09/12/2024 08:08 AM EDT
== END 2024-09-12 07:21 | disposition home or self-care (01) ==
LOC: HO.XRAY 07:20
PROVIDERS: PCP Internal Medicine; Visit Provider Internal Medicine
DX: M25.571 Pain in right ankle and joints of right foot (principal)
CPT/HCPCS: 73600

== ENCOUNTER → 2024-09-12 07:24 | Outpatient (BNV) | payer BC, SELFPAY | PROVIDERS: PCP Internal Medicine; Visit Provider Radiology Diagnostic Radiology | DX: M25.571 Pain in right ankle and joints of right foot (principal) | CPT/HCPCS: 73600 ==

== ENCOUNTER 2024-10-09 12:52 | Outpatient (AMB) | payer BC, SELFPAY ==
--- NOTE | 2024-10-09 13:20 | A.OFFPC_ITS ---
Vital Signs 10/09/24 13:21 Height 5 ft 8 in Weight 219 lb 6 oz BMI 33.4 BP 128/72 Blood Pressure Location Lt brachial Position Sitting Pulse 56 Pulse Source Pulse Oximeter Temp 97.1 F Temp Source Temporal Artery Scan Pulse Oximetry (%) 98 Oxygen Delivery Method Room Air Intake Visit Reasons: 3 mo follow up Intake Note: Patient is here to follow up on DM, HTN, BPH. Founder And Chief Executive Officer Required: No Emblem Maker: Not Required per policy Accompanied by: Self / Same As Patient Allergies metformin Adverse Reaction (Intermediate, Verified 10/09/24 13:21) Diarrhea Medication List - Last Reconciled 10/09/24 by Chari Benoit MD atorvastatin 40 mg PO DAILY 90 days [AUTOPAP 6-20 CM [id number] air As directedSleep study done 09/05/2024 showing obstructive sleep apnea mild with an AHI of 11 advised treatment with conservative measures. If with comorbid condition auto PAP mode 6-20 cm] blood sugar diagnostic (FreeStyle Test strips) As directed check BS QD clotrimazole 1% 1 appl topical BID 4 weeks colchicine 0.6 mg PO DAILY fexofenadine (Tracy Allergy) 180 mg PO DAILY lancets (FreeStyle Lancets) As directed check BS QD lisinopril 10 mg PO DAILY 90 days nabumetone 750 mg PO BID sitagliptin phosphate (Januvia) 100 mg PO DAILY 90 days tamsulosin 0.4 mg PO DAILY zolpidem (Ambien) 10 mg PO BEDTIME PRN Tobacco use date assessed: 10/09/24 Fall risk assessment: No Falls in past year Last assessed Fall Risk: 10/09/24 Dental Screening Dental Screen Date: 07/09/24 [facility] Medical History COVID-19 virus infection Genital herpes Type 2 diabetes mellitus with hyperglycemia Insomnia Hypercholesterolemia BPH (benign prostatic hyperplasia) Degenerative disc disease, lumbar Obesity (BMI 30-39.9) Vitamin D deficiency Mitral regurgitation Hypertrophic cardiomyopathy Surgical History History of testicular surgery Family History Father Acute CVA (cerebrovascular accident) Stroke Mother Hypertension Alzheimers disease Sister Stomach cancer Family/Other Prostate cancer Leukemia Social History Housing: House Alcohol intake: never Patient Tobacco Use Status: Former Tobacco user Tobacco use type: Cigarette Years Smoked: 1989 e-Cigarette/Vaping Use: Never Used Second Hand Smoke Exposure: Yes service: No Current occupational status: employed Cognitive needs: No Hearing needs: No Vision needs: Yes (Glasses) Questionnaire PHQ-9 Over the last 2 weeks, how often have you been bothered by any of the following problems? 1. Little interest or pleasure in doing things: not at all Depression Screening Interpretation: Negative Depression Screening Done: Yes Source: Developed by Drs. Shai Duarte, Yanely Jeffrey, Wing Moreira and colleagues, with an educational michael from [employer]. Thrive Questionnaire Date Thrive assessed: 10/09/24 I am a: Patient What is your living situation today?: I have a steady place to live Within the past 12 months, did the food you bought not last and you didn't have the money to get more?: Sometimes True Within the past 12 months, did you worry whether your food would run out before you got money to buy more?: I choose not to answer this question Do you have trouble paying for medicines?: No Do you have trouble getting transportation to medical appointments?: No Do you have trouble paying your heating and electricity bill?: Yes Do you have trouble taking care of your child, family member or friend?: No Do you have trouble with day-to-day activities such as bathing, preparing meals, shopping, managing finances, etc.?: No Are you currently unemployed and looking for a job?: No Are you interested in more education?: No Please select the resources that you would like help with: None Currently or been in a relationship where the following occur: I choose not to answer THRIVE Score: 2 AUDIT C Alcohol Use Questionnaire (AUDIT-C) 1. How often do you have a drink containing alcohol?: Never 3. How often do you have six or more drinks on one occasion?: Never Total Score: 0 ALISON-7 AMB Questionnaire ALISON-7 Date ALISON - 7 assessed: 07/09/24 Source: Developed by Drs. Shai Duarte, YanelyWing Rausch and colleagues, with an educational michael from [employer]. Physical exam (Primary Care) Vital Signs: Last Vital Signs Temp 97.1 F 10/09/24 13:21 Pulse 56 10/09/24 13:21 BP 128/72 10/09/24 13:21 Pulse Ox 98 10/09/24 13:21 Oxygen Delivery Method Room Air 10/09/24 13:21 BMI result Body Mass Index 33.4 Tobacco/Smoking Status: Tobacco use Status Tobacco use date assessed 10/09/24 10/09/24 13:28 Patient Tobacco Use Status Former Tobacco user 10/09/24 13:28 Tobacco use type Cigarette 10/09/24 13:28 e-Cigarette/Vaping Use Never Used 10/09/24 13:28 Depression Screening Interpretation: Negative Thrive Assessment: Date of Thrive Assessment Date Thrive assessed 10/09/24 10/09/24 13:28 Currently or been in a relationship where the following occur: I choose not to answer Const General: alert; No acute distress Eyes Conjunctivae: conjunctivae normal Resp Auscultation: clear to auscultation bilaterally Cardio Rate: regular rate Rhythm: regular rhythm GI Inspection: Yes normal to inspection Extrem General: Yes normal to inspection and No edema Results AMB Hemoglobin A1c AMB Hemoglobin A1c 6.7 % Last Edit by RADHA Figueredo on 10/09/24 13:37 Results Reviewed Results Reviewed: Laboratory Last Values Hgb A1c (Clinic) 6.7 % (4.0-6.0) H 10/09/24 13:20 Coding Level of Care Code Est Pt Level 4 (93741) Complex EM visit Add On G2211 Diagnoses Mild obstructive sleep apnea G47.33 Type 2 diabetes mellitus with hyperglycemia, without long-term current use of insulin E11.65 Diabetes mellitus exterminator helper termite insulin use: without jail use Hypercholesterolemia E78.00 Obesity (BMI 30-39.9) E66.9 Benign prostatic hyperplasia with urinary frequency N40.1; R35.0 Lower urinary tract symptom detail: urinary frequency Lower urinary tract symptom presence: symptoms present Essential hypertension I10 Assessment & Plan Assessment & Plan (1) Mild obstructive sleep apnea: Comment: Sleep study done 09/05/2024 showing obstructive sleep apnea mild with an AHI of 11 advised treatment with conservative measures. If with comorbid condition auto PAP mode 6-20 cm Code(s): G47.33 - Obstructive sleep apnea (adult) (pediatric) Category: Medical Plan: Patient has mild obstructive sleep apnea. Conservative measures recommended but can do auto PAP (2) Type 2 diabetes mellitus with hyperglycemia: Comment: [facility] Code(s): E11.65 - Type 2 diabetes mellitus with hyperglycemia Category: Medical Qualifiers: Diabetes mellitus jail insulin use: without jail use Qualified Code(s): E11.65 - Type 2 diabetes mellitus with hyperglycemia Plan: Decrease the amount of carbohydrate intake, pasta, bread, rice and potatoes are all sugar and that is aside from all the sweet stuff, remember that fruits are good but they are Sweet also. Hemoglobin A1c goal of less than 7.0. Patient is on Januvia 100 mg once a day (3) Hypercholesterolemia: Code(s): E78.00 - Pure hypercholesterolemia, unspecified Category: Medical Plan: Avoid fried foods, chicken skin, eggs, butter margarine, pastries and meat. Be it pork or beef they have a lot of cholesterol LDL goal of less than 100 and triglyceride of less than 150 (4) Obesity (BMI 30-39.9): Code(s): E66.9 - Obesity, unspecified Category: Medical Plan: Diet and exercise (5) BPH (benign prostatic hyperplasia): Code(s): N40.0 - Benign prostatic hyperplasia without lower urinary tract symptoms Category: Medical Qualifiers: Lower urinary tract symptom detail: urinary frequency Lower urinary tract symptom presence: symptoms present Qualified Code(s): N40.1 - Benign prostatic hyperplasia with lower urinary tract symptoms; R35.0 - Frequency of micturition Plan: Patient on tamsulosin (6) Essential hypertension: Code(s): I10 - Essential (primary) hypertension Category: Medical Plan: Continue with blood pressure medication. Decrease salt intake and exercise lisinopril 10 mg once a day Plan History of Present Illness The patient is a 68-year-old male presenting for a wellness visit and management of chronic conditions. His diabetes mellitus is well-controlled with hemoglobin A1c maintained at 6.7%; he is on Januvia 100 mg once daily, aiming for an A1c goal of less than 7.0%. For hypercholesterolemia, the patient follows diet and exercise recommendations and recently had an LDL level of 81 mg/dL. Management of benign prostatic hyperplasia includes tamsulosin, and hypertension is controlled with lisinopril 10 mg daily. The patient's history of hypertrophic cardiomyopathy and lumbar degenerative disc disease was acknowledged in the visit. He has mild obstructive sleep apnea with an AHI of 11, previously evaluated, and conservative measures advised. A right ankle x-ray prior had noted degenerative changes, but this was not a current complaint. Health Maintenance - Monitoring of hemoglobin A1c every 3-6 months, with a goal of less than 7.0% - Lipid profile with LDL target below 100 mg/dL - Dietary measures and physical activity for cardiovascular health - Screenings and laboratory evaluations for diabetes management - Sleep study reviewed; conservative management of sleep apnea discussed Social History - No new social determinants of health were discussed. Review of Systems - Sleep: Reports mild obstructive sleep apnea - Cardiovascular: Denies chest pain or palpitations - Musculoskeletal: Right ankle degenerative changes noted in past x-ray - Endocrine: Denies symptoms of hypoglycemia or hyperglycemia - Neurology: Denies headaches or dizziness - General: Denies significant weight change Physical Exam Results - Labs: Hemoglobin A1c at 6.7%, Normal blood counts, Normal electrolytes, Normal renal function, LDL of 81 mg/dL - Tests: Sleep study indicating mild apnea with AHI of 11 - Imaging: Right ankle x-ray showing degenerative changes at tarsometatarsal joints, small plantar calcaneal spur Plan 1. 0%. Hypercholesterolemia is managed by targeting an LDL below 100 mg/dL with diet and exercise, and current levels are satisfactory. Tamsulosin is continued for BPH, and lisinopril 10 mg daily for hypertension should be maintained. For mild obstructive sleep apnea, conservative management continues, with CPAP considered if indicated by future progression. Regular follow-up and monitoring of chronic conditions, especially lab evaluations and symptom tracking, are emphasized. The identification of additional needs for lumbar disc disease or other concerns will be addressed in future visits as required.: Patient was informed and verbally consented to the use of an ambient scribe for clinic note documentation during this visit. Discussion Notes During our discussion, I reviewed the patient's current management plan and emphasized the importance of adhering to prescribed medications, including Januvia for diabetes management, and lifestyle modifications for cholesterol and cardiovascular health. We discussed the stable hemoglobin A1c level and the recent LDL measurement, and concluded that current management strategies are effective for maintaining target levels. We considered the risks and benefits of conservative management for mild obstructive sleep apnea, emphasizing the need for further intervention if symptoms worsen. No additional interventions were required for lumbar spinal issues or the right ankle at this time. Continuing regular follow-up visits to monitor these chronic conditions was advised to ensure ongoing management and prevention of complications. Patient Instructions - Continue taking Januvia 100 mg daily - Maintain diet and exercise plan to help manage cholesterol and diabetes - Continue taking lisinopril 10 mg daily for blood pressure - Follow conservative measures discussed for sleep apnea; monitor for worsening symptoms - Return for regular check-ups and lab evaluations - Report any new symptoms or concerns promptly to manage conditions efficiently Orders: Orders AMB Hemoglobin A1c Today E11.65 - Type 2 diabetes mellitus with hyperglycemia Medications: New dapagliflozin propanediol (Farxiga) 5 mg PO DAILY 30 tabs 4RF E11.65 - Type 2 diabetes mellitus with hyperglycemia Refilled zolpidem (Ambien) 10 mg PO BEDTIME PRN 30 tabs 2RF sleep G47.00 - Insomnia, unspecified
[2024-10-09 13:21] VITALS: BP 128/72; PULSE 56; TEMP 36.2; O2SAT 98; BMI 33.4
== END 2024-10-09 14:00 | disposition home or self-care (01) ==
LOC: HO.HMCH 12:53
PROVIDERS: PCP Internal Medicine; Visit Provider Internal Medicine
DX: E11.65 Type 2 diabetes mellitus with hyperglycemia (principal); E78.00 Pure hypercholesterolemia, unspecified; E66.9 Obesity, unspecified; Z68.33 Body mass index [BMI] 33.0-33.9, adult; G47.33 Obstructive sleep apnea (adult) (pediatric); N40.1 Benign prostatic hyperplasia with lower urinary tract symptoms; R35.0 Frequency of micturition; I10 Essential (primary) hypertension

== ENCOUNTER → 2024-10-09 12:52 | Outpatient (BNVA) | payer BC, SELFPAY | PROVIDERS: PCP Internal Medicine; Visit Provider Internal Medicine | DX: E11.9 Type 2 diabetes mellitus without complications (principal); I10 Essential (primary) hypertension; G47.33 Obstructive sleep apnea (adult) (pediatric); E11.65 Type 2 diabetes mellitus with hyperglycemia; E78.00 Pure hypercholesterolemia, unspecified; E66.9 Obesity, unspecified; N40.1 Benign prostatic hyperplasia with lower urinary tract symptoms; R35.0 Frequency of micturition; M51.369 Other intervertebral disc degeneration, lumbar region without mention of lumbar back pain or lower extremity pain; G47.00 Insomnia, unspecified; Z79.899 Other long term (current) drug therapy | CPT/HCPCS: 83036 ==

== ENCOUNTER 2025-01-20 09:39 | Outpatient (AMB) | payer BC, SELFPAY ==
[2025-01-20 09:57] VITALS: BP 120/60; PULSE 58; BMI 32.8
--- NOTE | 2025-01-20 09:57 | A.OFFVIS_ITS ---
Vital Signs 01/20/25 09:57 Height 5 ft 8 in Weight 216 lb 0.848 oz BMI 32.8 BP 120/60 Blood Pressure Location Lt brachial Position Sitting Pulse 58 Pulse Source Monitor Intake Visit Reasons: 1 yr f/up Allergies metformin Adverse Reaction (Intermediate, Verified 10/09/24 13:21) Diarrhea Medication List - Last Reconciled 01/20/25 by Jose Juan Perales MD atorvastatin 40 mg PO DAILY 90 days [AUTOPAP 6-20 CM [id number] air As directedSleep study done 09/05/2024 showing obstructive sleep apnea mild with an AHI of 11 advised treatment with conservative measures. If with comorbid condition auto PAP mode 6-20 cm] blood sugar diagnostic (FreeStyle Test strips) As directed check BS QD clotrimazole 1% 1 appl topical BID 4 weeks colchicine 0.6 mg PO DAILY dapagliflozin propanediol (Farxiga) 5 mg PO DAILY fexofenadine (Tracy Allergy) 180 mg PO DAILY lancets (FreeStyle Lancets) As directed check BS QD lisinopril 10 mg PO DAILY 90 days nabumetone 750 mg PO BID tamsulosin 0.4 mg PO DAILY zolpidem (Ambien) 10 mg PO BEDTIME PRN HPI Comments Details: Ti returns for follow-up. In the past, labeled to have hypertrophic cardiomyopathy but this could rather just be from left ventricular hypertrophy from hypertension. Clinically, he has got absolutely no symptoms. He feels good. Unlimited exercise tolerance. [facility] Medical History COVID-19 virus infection Genital herpes Type 2 diabetes mellitus with hyperglycemia Insomnia Hypercholesterolemia BPH (benign prostatic hyperplasia) Degenerative disc disease, lumbar Obesity (BMI 30-39.9) Vitamin D deficiency Mitral regurgitation Hypertrophic cardiomyopathy Surgical History History of testicular surgery Family History Father Acute CVA (cerebrovascular accident) Stroke Mother Hypertension Alzheimers disease Sister Stomach cancer Family/Other Prostate cancer Leukemia Social History Housing: House Alcohol intake: never Patient Tobacco Use Status: Former Tobacco user Tobacco use type: Cigarette Years Smoked: quit 1989 e-Cigarette/Vaping Use: Never Used Second Hand Smoke Exposure: Yes service: No Current occupational status: employed Cognitive needs: No Hearing needs: No Vision needs: Yes (Glasses) Review of Systems Const Denies weakness ENT Denies dizziness Card Denies chest pain, Denies chest pain with activity, Denies syncope, Denies rapid heart rate, Denies pedal edema, Denies edema, Denies leg edema, Denies lightheadedness, Denies palpitations, Denies dyspnea, Denies dyspnea on exertion and Denies orthopnea Resp Denies cough, Denies dyspnea and Denies dyspnea on exertion GI Denies hematochezia and Denies change in stool character Musc Denies abnormal gait, Denies muscle cramps, Denies muscle weakness, Denies numbness, Denies radiating pain into limb and Denies tingling Neuro Denies abnormal gait, Denies dizziness, Denies syncope, Denies numbness, Denies tingling and Denies weakness Endo Denies palpitations Physical Exam Vital Signs: Last Vital Signs Pulse 58 01/20/25 09:57 BP 120/60 01/20/25 09:57 BMI result Body Mass Index 32.8 Const General: comfortable and no acute distress Orientation/consciousness: patient oriented x3 HEENT Other: Unremarkable Head: Yes normal to inspection Neck Neck: Yes normal visual inspection Chest Chest palpation & inspection: normal inspection of the chest Resp Auscultation: clear to auscultation bilaterally Cardio Palpation: normal PMI Heart sounds: S1 normal heart sound present, S2 normal heart sound present, no gallops, no murmurs and no rubs GI Palpation (GI): Soft to palpation Back/Spine/Pelvis Other: unremarkable Skin General skin exam: no rashes or lesions noted Neuro General: patient oriented x3 Extrem General: Yes normal to inspection Psych Mental Status: mental status grossly normal Office Procedures EKG Details: EKG with sinus bradycardia at 58/Min; no ischemic changes; borderline DC prolongation to 208 millisecond; [place] [id number], Complete Assessment & Plan Assessment & Plan (1) LVH (left ventricular hypertrophy): Code(s): I51.7 - Cardiomegaly Category: Medical Plan: Previously documented to have hypertrophic cardiomyopathy, but suspect it is probably all from hypertension. Echocardiogram 2022-LVEF 68%. Peak global longitudinal strain within limits; mild left ventricular hypertrophy; otherwise unremarkable. Myocardial perfusion imaging study from 202 with normal perfusion at 8.5 METS exercise capacity. EKG changes could be nonspecific. Overall, recommendation is to continue good blood pressure management. (2) Essential hypertension: Code(s): I10 - Essential (primary) hypertension Category: Medical Plan: Controlled on lisinopril. 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 Hemoglobin A1c is 6.7%. Within acceptable limits. (4) Hypercholesterolemia: Code(s): E78.00 - Pure hypercholesterolemia, unspecified Category: Medical Plan: On statins. LDL 81 mg/dL and triglycerides 65 mg/dL. Plan Discussion Notes During the visit, we discussed the management of the patient's diabetes with Farxiga and the importance of regular glucose monitoring. We also reviewed the patient's hypertension management with Lisinopril and emphasized the need for regular blood pressure checks. Patient was informed and verbally consented to the use of an ambient scribe for clinic note documentation during this visit. Patient Instructions: -continue taking medications regularly. -contact us immediately for any concerning cardiac symptoms. Coding Level of Care Code Est Pt Level 4 (10908) Diagnoses LVH (left ventricular hypertrophy) I51.7 Essential hypertension I10 Type 2 diabetes mellitus with hyperglycemia, without long-term current use of insulin E11.65 Diabetes mellitus petroleum terminal plant operator insulin use: without petroleum terminal plant operator use Hypercholesterolemia E78.00 CPT Codes EKG - CPT: 59338-[id number], Complete ([id number])
--- OUTSIDE RECORDS SUMMARY | 2025-01-20 11:25 | XMS_ITS | Patient Health Record ---
Author Organization [facility] Address [address] [place] [id number] Care Team Providers Care Clinical Project Leader Name Role Phone Chari Benoit MD Primary Care Provider Shai Zhang [phone] Allergies Allergen (clinical drug ingredient) Drug/Non Drug Allergy documented on EMR Reaction Allergy Type Onset Date Status seasonal (uncoded) Unknown Allergy A ctive Reason For Referral No Information Medications Medication SIG (Take, Route, Frequency, Duration) Notes Start Date End Date Status Simvastatin 40 MG TAKE TAKE 1 TABLET B Y MOUTH EVERY EVENING ONCE A DAY ORALLY ONCE A DAY ORALLY 90 DAYS Oral for 90 Active Nabumetone 500 MG TAKE 1 TABLET BY BOGDAN TH TWICE A DAY WITH FOOD Oral for 30 Not-Taking Zolpidem Tartrate 5 MG (Schedule IV Drug ) TAKE 1 TABLET BY MOUTH EVERY DAY AT BEDTIME Oral for 25 PRN Active Lisinopril 5 MG TAKE 1 TABLET BY BOGDAN TH EVERY DAY Oral for 90 Active Meloxicam 15 MG TAKE 1 TABLET ONCE A DAY ORALLY 30 DAY(S) Oral for 30 Not-Taking Dicyclomine HCl 10 MG 1-2 capsules Orall y Four times a day prn abdominal bloating/gas/discomfort for 90 Active Immunizations Vaccine Route Administration Date Status Comme nts Influenza Unknown 05/04/2018 Refused Social History Tobacco Use: Social History Observation Description Date Details (start date - stop date) Former Smoker NA - NA Tobacco Use/Smoking Question Answer Notes Patient is a former smoker How long has it been since you last smoked? > 10 years Alcohol Screen Question Answer Notes Did you have a drink contain ing alcohol in the past year? Yes How often did you have a dri nk containing alcohol in the past year? Monthly or less (1 point) How many drinks did you have on a typical day when you were drinking in the past year? 1 or 2 drinks (0 point) How often did you have 6 or more drinks on one occasion in the past year? Never (0 point) Points 1 Interpretation Negative Section Notes: Nonsmoker > 30 yrs ago; no s ig alcohol Problems Problem Type SNOMED Code ICD Code Onset Dates Problem Status W/U Status Risk Notes Problem [id number] Encounter for screening for malignant neoplasm of colon (Z12.11) Active confirmed Problem 15846243 Abdominal gas pain (R14.1) Active confirmed Plan Of Treatment Future Test Test Name Order Date COLONOSCOPY 05/04/2018 Insurance Providers Payer Name Payer Address Payer Phone Subscriber Number Group Number Insured Name Patient Relationship to Insured Coverage Start Date Coverage End Date [facility] [address] [place], [place] [id number] [phone] [id number] [employer] [employer] Self - patient is the insured Medical (General) History Medical History History ICD Code Hypertension Denies [place],DM,CVA,Lung disease,renal dise ase Arthritis Negative colonoscopy in 01/18 09--mild diverticulosis and small internal hemorrhoids Surgical History Surgery Date(Month/Year) Testicular tumor removal-benign
== END 2025-01-20 10:16 | disposition home or self-care (01) ==
LOC: HO.HCS 09:39
PROVIDERS: PCP Internal Medicine; Visit Provider Internal Medicine
DX: I51.7 Cardiomegaly (principal); I10 Essential (primary) hypertension; E11.65 Type 2 diabetes mellitus with hyperglycemia; E78.00 Pure hypercholesterolemia, unspecified
CPT/HCPCS: 93010; 99214

== ENCOUNTER → 2025-01-20 09:39 | Outpatient (BNVA) | payer BC, SELFPAY | PROVIDERS: PCP Internal Medicine; Visit Provider Internal Medicine | DX: I51.7 Cardiomegaly (principal) | CPT/HCPCS: 93005 ==

== ENCOUNTER 2025-02-07 12:24 | Outpatient (AMB) | payer BC, SELFPAY ==
[2025-02-07 12:26] VITALS: BP 130/68; PULSE 59; O2SAT 98; BMI 32.5
--- NOTE | 2025-02-07 12:26 | MHC.PC.OV ---
Vital Signs 02/07/25 12:26 Height 5 ft 8 in Weight 214 lb BMI 32.5 BP 130/68 Blood Pressure Location Lt brachial Position Sitting Pulse 59 Pulse Source Pulse Oximeter Pulse Oximetry (%) 98 Oxygen Delivery Method Room Air Intake Visit Reasons: DM Allergies metformin Adverse Reaction (Intermediate, Verified 02/07/25 12:27) Diarrhea Tobacco use date assessed: 10/09/24 Fall risk assessment: No Falls in past year Last assessed Fall Risk: 02/07/25 Dental Screening Dental Screen Date: 07/09/24 [facility] Medical History COVID-19 virus infection Genital herpes Type 2 diabetes mellitus with hyperglycemia Insomnia Hypercholesterolemia BPH (benign prostatic hyperplasia) Degenerative disc disease, lumbar Obesity (BMI 30-39.9) Vitamin D deficiency Mitral regurgitation Hypertrophic cardiomyopathy Surgical History History of testicular surgery Family History Father Acute CVA (cerebrovascular accident) Stroke Mother Hypertension Alzheimers disease Sister Stomach cancer Family/Other Prostate cancer Leukemia Social History Housing: House Alcohol intake: never Patient Tobacco Use Status: Former Tobacco user Tobacco use type: Cigarette Years Smoked: 1989 e-Cigarette/Vaping Use: Never Used Second Hand Smoke Exposure: Yes service: No Current occupational status: employed Cognitive needs: No Hearing needs: No Vision needs: Yes (Glasses) Questionnaire Thrive Questionnaire Date Thrive assessed: 07/09/24 I am a: Patient What is your living situation today?: I have a steady place to live Within the past 12 months, did the food you bought not last and you didn't have the money to get more?: Sometimes True Within the past 12 months, did you worry whether your food would run out before you got money to buy more?: I choose not to answer this question Do you have trouble paying for medicines?: No Do you have trouble getting transportation to medical appointments?: No Do you have trouble paying your heating and electricity bill?: Yes Do you have trouble taking care of your child, family member or friend?: No Do you have trouble with day-to-day activities such as bathing, preparing meals, shopping, managing finances, etc.?: No Are you currently unemployed and looking for a job?: No Are you interested in more education?: No Please select the resources that you would like help with: None Currently or been in a relationship where the following occur: I choose not to answer THRIVE Score: 2 ALISON-7 AMB Questionnaire ALISON-7 Date ALISON - 7 assessed: 07/09/24 Source: Developed by Drs. Shai Duarte, Yanely Jeffrey, Wing Moreira and colleagues, with an educational michael from [employer]. Physical exam (Primary Care) Vital Signs: Last Vital Signs Pulse 59 02/07/25 12:26 BP 130/68 02/07/25 12:26 Pulse Ox 98 02/07/25 12:26 Oxygen Delivery Method Room Air 02/07/25 12:26 BMI result Body Mass Index 32.5 Tobacco/Smoking Status: Tobacco use Status Tobacco use date assessed 10/09/24 02/07/25 12:27 Patient Tobacco Use Status Former Tobacco user 02/07/25 12:27 Tobacco use type Cigarette 02/07/25 12:27 e-Cigarette/Vaping Use Never Used 02/07/25 12:27 Thrive Assessment: Date of Thrive Assessment Date Thrive assessed 07/09/24 02/07/25 12:27 Currently or been in a relationship where the following occur: I choose not to answer Const General: alert; No acute distress Eyes Conjunctivae: conjunctivae normal Resp Auscultation: clear to auscultation bilaterally Cardio Rate: regular rate Rhythm: regular rhythm GI Inspection: Yes normal to inspection Extrem General: Yes normal to inspection and No edema Results AMB Hemoglobin A1c AMB Hemoglobin A1c 6.0 % Last Edit by Sahra Ybarra CMA on 02/07/25 12:41 Results Reviewed Results Reviewed: Laboratory Last Values Hgb A1c (Clinic) 6.0 % (4.0-6.0) 02/07/25 12:27 Coding Level of Care Code Est Pt Level 4 (57613) Complex EM visit Add On G2211 Diagnoses Type 2 diabetes mellitus with hyperglycemia, without long-term current use of insulin E11.65 Diabetes mellitus intermediate school teacher insulin use: without [facility] use Hypertrophic cardiomyopathy I42.2 Hypercholesterolemia E78.00 Essential hypertension I10 Benign prostatic hyperplasia with urinary frequency N40.1; R35.0 Lower urinary tract symptom detail: urinary frequency Lower urinary tract symptom presence: symptoms present Assessment & Plan Assessment & Plan (1) Type 2 diabetes mellitus with hyperglycemia: Comment: [facility] Code(s): E11.65 - Type 2 diabetes mellitus with hyperglycemia Category: Medical Qualifiers: 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 Hemoglobin A1c goal of less than 7.0 patient is on Farxiga 5 mg once a day only (2) Hypertrophic cardiomyopathy: Comment: June 2018 stress negative Code(s): I42.2 - Other hypertrophic cardiomyopathy Category: Medical Plan: Continue to follow up with Cardiology EF has recovered. (3) Hypercholesterolemia: Code(s): E78.00 - Pure hypercholesterolemia, unspecified Category: Medical Plan: Avoid fried foods, chicken skin, eggs, butter margarine, pastries and meat. Be it pork or beef they have a lot of cholesterol on atorvastatin 40 mg once a day LDL goal of less than 100 and triglyceride of less than 150 (4) Essential hypertension: Code(s): I10 - Essential (primary) hypertension Category: Medical Plan: Continue with blood pressure medication. Decrease salt intake and exercise on lisinopril 10 mg once a day (5) BPH (benign prostatic hyperplasia): Code(s): N40.0 - Benign prostatic hyperplasia without lower urinary tract symptoms Category: Medical Qualifiers: Lower urinary tract symptom detail: urinary frequency Lower urinary tract symptom presence: symptoms present Qualified Code(s): N40.1 - Benign prostatic hyperplasia with lower urinary tract symptoms; R35.0 - Frequency of micturition Plan: Continue with tamsulosin Plan History of Present Illness The patient is a 69-year-old male presenting for a follow-up visit. The patient has a history of diabetes mellitus, which is currently managed with Farxiga 5 mg once daily. His hemoglobin A1c is well-controlled at 6.0, with a goal of maintaining it below 7.0. He reports no changes in diet and attributes improvements to medication. The patient also has hypercholesterolemia, managed with atorvastatin 40 mg daily, aiming for an LDL cholesterol level below 100 mg/dL. His current LDL cholesterol is 81 mg/dL, indicating good control. He has a history of benign prostatic hyperplasia and is currently taking tamsulosin. The patient reports insomnia and mild sleep apnea, for which he has not been using a CPAP device. Hypertension is managed with lisinopril 10 mg daily, and his blood pressure is well-controlled. He has hypertrophic cardiomyopathy, with a recent echocardiogram showing an ejection fraction of 68% and mild left ventricular hypertrophy. He continues to follow up with cardiology annually. The patient is obese and has been advised on weight management strategies. Preventative care includes a colonoscopy last performed in 2019 and vaccinations such as flu and shingles. Health Maintenance - Colonoscopy last performed in 2019 - Cardiological follow-up annually - Vaccinations: Flu and shingles shots discussed Social History Review of Systems - Cardiovascular: Denies chest pain, reports well-controlled blood pressure. - Endocrine: Reports stable blood sugar levels, denies symptoms of hyperglycemia. - Respiratory: Reports mild sleep apnea, denies use of CPAP. - Neurological: Reports insomnia, denies other neurological symptoms. - Musculoskeletal: Reports intermittent back pain, currently resolved. - Allergic/Immunologic: Reports allergic rhinitis, controlled with Tracy. Physical Exam Results - Labs: Hemoglobin A1c 6.0, LDL cholesterol 81 mg/dL, normal thyroid function, no proteinuria in urine analysis. - Imaging: Echocardiogram with ejection fraction of 68%, mild left ventricular hypertrophy. Plan Patient was informed and verbally consented to the use of an ambient scribe for clinic note documentation during this visit. 1. Diabetes Mellitus The patient's diabetes mellitus is managed with Farxiga 5 mg daily, with a goal to maintain hemoglobin A1c below 7.0. Current A1c is 6.0, indicating good control. No dietary changes have been made, and the patient is advised to continue current management. 2. Hypercholesterolemia Hypercholesterolemia is managed with atorvastatin 40 mg daily, aiming for an LDL cholesterol level below 100 mg/dL. Current LDL is 81 mg/dL, showing effective control. 3. Hypertension Hypertension is controlled with lisinopril 10 mg daily. Blood pressure is well-managed, and the patient is advised to continue current therapy. 4. Hypertrophic Cardiomyopathy The patient has hypertrophic cardiomyopathy with an ejection fraction of 68% and mild left ventricular hypertrophy. Annual cardiology follow-up is recommended. 5. Benign Prostatic Hyperplasia (Bph) BPH is managed with tamsulosin, and the patient is advised to continue this medication. 6. Obesity The patient is advised on weight management strategies to address obesity. 7. Preventative Care Preventative care includes a colonoscopy last performed in 2019 and vaccinations such as flu and shingles. Discussion Notes During the visit, we discussed the management of diabetes mellitus with Farxiga, emphasizing the importance of maintaining hemoglobin A1c below 7.0. We also reviewed the patient's hypercholesterolemia management with atorvastatin, aiming for an LDL cholesterol level below 100 mg/dL. The patient was advised to continue lisinopril for hypertension and to follow up with cardiology annually for hypertrophic cardiomyopathy. Preventative care measures, including vaccinations and colonoscopy, were also discussed. Patient Instructions - Continue taking Farxiga 5 mg daily for diabetes management. - Maintain current diet and monitor blood sugar levels regularly. - Take atorvastatin 40 mg daily to manage cholesterol levels. - Continue lisinopril 10 mg daily for blood pressure control. - Follow up with cardiology annually for heart condition monitoring. - Schedule and receive flu and shingles vaccinations as discussed. - Consider weight management strategies to address obesity. Orders: Orders Complete Blood Count Auto Diff Today E11.65 - Type 2 diabetes mellitus with hyperglycemia UA CC w/rflx Micro + Cult Today E11.65 - Type 2 diabetes mellitus with hyperglycemia, R30.0 - Dysuria Thyroid Stimulating Hormone Today E11.65 - Type 2 diabetes mellitus with hyperglycemia Hemoglobin A1c Today E11.65 - Type 2 diabetes mellitus with hyperglycemia Vitamin B12 and Folate Today E11.65 - Type 2 diabetes mellitus with hyperglycemia AMB Hemoglobin A1c Today Z13.9 - Encounter for screening, unspecified Comprehensive Met. Panel Today E11.65 - Type 2 diabetes mellitus with hyperglycemia Free T4 (Free Thyroxine) Today E11.65 - Type 2 diabetes mellitus with hyperglycemia Lipid Panel Today E11.65 - Type 2 diabetes mellitus with hyperglycemia, E78.00 - Pure hypercholesterolemia, unspecified Microalbumin, Random (w Creat) Today E11.65 - Type 2 diabetes mellitus with hyperglycemia Creatinine Urine Today E11.65 - Type 2 diabetes mellitus with hyperglycemia Prostate Specific Antigen Scr Today E11.65 - Type 2 diabetes mellitus with hyperglycemia Referrals Urology Referral N40.1 - Benign prostatic hyperplasia with lower urinary tract symptoms, R35.0 - Frequency of micturition
== END 2025-02-07 13:05 | disposition home or self-care (01) ==
LOC: HO.HMCH 12:24
PROVIDERS: PCP Internal Medicine; Visit Provider Internal Medicine
DX: E11.65 Type 2 diabetes mellitus with hyperglycemia (principal); I42.2 Other hypertrophic cardiomyopathy; E78.00 Pure hypercholesterolemia, unspecified; I10 Essential (primary) hypertension; N40.1 Benign prostatic hyperplasia with lower urinary tract symptoms; R35.0 Frequency of micturition; Z13.9 Encounter for screening, unspecified

== ENCOUNTER → 2025-02-07 12:24 | Outpatient (BNVA) | payer BC, SELFPAY | PROVIDERS: PCP Internal Medicine; Visit Provider Internal Medicine | DX: E11.65 Type 2 diabetes mellitus with hyperglycemia (principal); I42.2 Other hypertrophic cardiomyopathy; E78.00 Pure hypercholesterolemia, unspecified; I10 Essential (primary) hypertension; N40.1 Benign prostatic hyperplasia with lower urinary tract symptoms; R35.0 Frequency of micturition; Z79.899 Other long term (current) drug therapy | CPT/HCPCS: 83036 ==